=== PATIENT | female | born 1975 | race Caucasian/White ===

== ENCOUNTER 2020-04-13 15:41 | Emergency (ER) | payer MEDICARE, OTHER, SELFPAY ==
[2020-04-13 15:46] VITALS: BP 172/91; PULSE 76; RESP 20; TEMP 37; O2SAT 96
[2020-04-13 16:26] VITALS: PULSE 68
--- NOTE | 2020-04-13 17:06 | ECG_ITS ---
Measurements Intervals Max Rate: 61 P: 68 CA: 155 QRS: 60 QRSD: 93 T: 63 QT: 436 QTc: 442 Interpretive Statements SINUS RHYTHM WITH MARKED SINUS ARRHYTHMIA NORMAL ECG Electronically Signed On 04-14-2020 6:58:02 CDT by Armando Schofield D.O.
[2020-04-13 17:31] LABS: Basophils Absolute Auto 0.1 K/mm3 (0.0-0.1); Basophils Percent Auto 0.8 % (0.2-1.2); Eosinophils Absolute Auto 0.3 K/mm3 (0-0.3); Eosinophils Percent Auto 4.3 % (0-4.4); Hematocrit 33.7 % (37.0-47.0); Hemoglobin 10.7 g/dL (12.0-15.0); Immature Granulocyte Absolute 0.02 K/mm3 (0.00-0.031); Immature Granulocyte Percent A 0.3 % (0-0.5); Lymphocytes Absolute Auto 2.64 K/mm3 (0.9-3.2); Mean Corpuscular HGB Conc 31.8 g/dl (32-36); Mean Corpuscular Hemoglobin 21.1 pg (26-34); Mean Corpuscular Volume 66.6 fl (80-100); Mean Platelet Volume 11.5 fl (7.4-10.4); Monocytes Absolute Auto 0.4 K/mm3 (0.1-0.6); Monocytes Percent Auto 5.5 % (2.6-8.5); Neutrophils Absolute Auto 4.3 K/mm3 (1.3-6.7); Neutrophils Percent Auto 55.1 % (45.5-73.1); Platelet Count Result 180 k/mm3 (150-375); Red Blood Count 5.06 M/mm3 (4.2-5.4); Red Cell Distribution Width 15.2 % (11.5-14.5); White Blood Count 7.8 K/mm3 (4.5-10.0)
[2020-04-13 17:43] LABS: Alanine Aminotransferase 19 U/L (4-35); Albumin Level 4.1 g/dL (3.5-5.1); Alkaline Phosphatase 67 U/L (38-126); Aspartate Amino Transferase 24 U/L (14-36); Bilirubin,Total 0.6 mg/dL (0.2-1.3); Blood Urea Nitrogen 7 mg/dL (7-17); Calcium 8.9 mg/dL (8.4-10.2); Carbon Dioxide 29 mmol/L (22-30); Chloride 106 mmol/L (98-107); Estimated CRCL calculation 107 ml/min; Estimated Glomerular Filt Rate > 60; Glucose 96 mg/dL (65-105); Potassium 3.3 mmol/L (3.4-5.0); Sodium 137 mmol/L (137-145)
[2020-04-13 17:57] VITALS: BP 150/86; PULSE 55
[2020-04-13 17:58] VITALS: BP 160/91; PULSE 53
--- NOTE | 2020-04-13 17:58 | ED.GENADULT ---
HPI - General Adult General Chief complaint: Unspecified Stated complaint: I ALMOST PASSED OUT Time Seen by Provider: 04/13/20 17:06 Source: patient Mode of arrival: ambulatory Limitations: no limitations History of Present Illness HPI narrative: This patient is a 44 year old female who presents for evaluation of tiredness. She states she has been at work for 8 hours in a hot environment. She states that as she was working she started feel tired. She reports everytime she would sit down she want to fall asleep. She feels better. She denies chest pain, headache, sob, abdominal pain, nausea, vomiting or fever. Related Data Home Medications Medication Instructions Recorded Confirmed No Home Medications 04/13/20 04/13/20 Allergies Allergy/AdvReac Type Severity Reaction Status Date / Time No Known Allergies Allergy Verified 04/13/20 18:47 Review of Systems Review of Systems: All systems reviewed & are unremarkable except as noted in HPI and below Constitutional: Constitutional: Denies chills and Denies fever(s) ENT: Denies dizziness, Denies epistaxis and Denies sore throat Cardiovascular: Cardiovascular: Denies chest pain, Denies rapid heart rate and Denies radiating jaw, neck or arm pain Respiratory: Respiratory: Denies chest congestion, Denies cough and Denies dyspnea Gastrointestinal: Gastrointestinal: Denies abdominal pain, Denies diarrhea, Denies nausea and Denies vomiting Musculoskeletal: Musculoskeletal: Denies back pain Neurologic: Denies headache(s) and Denies focal weakness PMFSH Past Medical History Medical History (Updated 04/13/20 @ 18:46 by Zully Saldana MD) Hyperlipidemia Hypertension Surgical History Surgical History (Updated 04/13/20 @ 17:59 by Zully Saldana MD) History of laparotomy Social History Social History (Updated 04/13/20 @ 17:59 by Zully Saldana MD) Smoking packs per day: 1 Smoking cigarettes per day: 20.0 Smoking status: Current every day smoker Exam Narrative: Exam Narrative: GENERAL: Well-appearing, well-nourished, and in no acute distress. HEAD: Normocephalic, atraumatic EYES: PERRLA and EOMI, conjunctiva clear without discharge EARS: TM's clear bilaterally without erythema or dullness NOSE: Nares clear, no rhinorrhea or epistaxis THROAT:Mucous membranes moist, Oropharynx normal without erythema, exudate, peritonsillar swelling or fluctuance NECK: Supple, without lymphadenopathy or mass RESPIRATORY: No respiratory distress, Airway patent, Respirations non-labored, Clear to auscultation without rales, rhonchi or wheeze HEART: Regular rate and rhythm. No murmur heard. Normal peripheral pulses. ABDOMEN: Soft, nontender, nondistended, normal active bowel sounds. No masses. No rebound or guarding, No organomegaly. EXTREMITIES: No edema, normal strength with full range of motion. SKIN: Warm, dry, normal color without rash NEURO: Alert and oriented x3. CN 2-12 grossly intact. No focal deficits. PSYCH: Normal mood and affect. Course Vital Signs Vital signs: Vital Signs Temperature 98.6 F 04/13/20 15:46 Pulse Rate 76 04/13/20 15:46 Respiratory Rate 20 04/13/20 15:46 Blood Pressure 172/91 H 04/13/20 15:46 Pulse Oximetry 96 04/13/20 15:46 Temperature 98.6 F 04/13/20 15:46 Pulse Rate 62 04/13/20 18:53 Respiratory Rate 16 04/13/20 18:53 Blood Pressure 144/89 H 04/13/20 18:53 Pulse Oximetry 98 04/13/20 18:53 Medical Decision Making Vital Signs Vital Signs: Vital Signs Temperature 98.6 F 04/13/20 15:46 Pulse Rate 76 04/13/20 15:46 Respiratory Rate 20 04/13/20 15:46 Blood Pressure 172/91 H 04/13/20 15:46 Pulse Oximetry 96 04/13/20 15:46 Temperature 98.6 F 04/13/20 15:46 Pulse Rate 62 04/13/20 18:53 Respiratory Rate 16 04/13/20 18:53 Blood Pressure 144/89 H 04/13/20 18:53 Pulse Oximetry 98 04/13/20 18:53 Lab Data Lab results reviewed: Yes I reviewed
[2020-04-13 18:00] VITALS: BP 162/95; PULSE 60
[2020-04-13] MEDS: POTASSIUM CHLORIDE 20 MEQ TABLET 40 MEQ PO (18:47)
[2020-04-13 18:53] VITALS: BP 144/89; PULSE 62; RESP 16; O2SAT 98
== END 2020-04-13 18:53 | disposition home or self-care (01) ==
PROVIDERS: Emergency Provider General Practice
DX: R53.83 Other fatigue (principal); E87.6 Hypokalemia; E78.5 Hyperlipidemia, unspecified; I10 Essential (primary) hypertension; F17.210 Nicotine dependence, cigarettes, uncomplicated
CPT/HCPCS: 36415; 80053; 81025; 85025; 93005; 99283; A9270

== ENCOUNTER 2020-12-22 15:37 | Emergency (ER) | payer MEDICARE, SELFPAY ==
--- NOTE | ~2020-12-22 | CT_ITS ---
EXAMINATION: CT cervical spine wo [facility] EXAM DATE: 12/22/2020 19:13 INDICATION: Neck pain, intermittent tingling in arms. TECHNIQUE: Spiral CT of the cervical spine was performed without contrast. Axial images were reviewe d. Coronal and sagittal reformatted images were also reviewed. The dose-length product (DLP) for thi s examination was 352.55 mGy-cm. The exposure was tailored according to patient size (auto mA exposu re control), and iterative reconstruction (ASIR) was used as additional dose reduction technique. Th ere is no prior study for comparison. FINDINGS: The vertebral bodies are aligned in the AP dimension. There are no acute fractures identif ied. Mild mid cervical disc disease. Mild to moderate bilateral uncovertebral joint arthropathy at C3 -4 causing mild to moderate bilateral neural foraminal stenosis. Otherwise mild cervical arthropathy. The odontoid process is intact. The lateral masses of C1 line up with C2. Prevertebral soft tissue and pre-dens space are within normal limits. IMPRESSION: C3-4 mild to moderate spondylosis. Less at other levels. Reviewed, dictated and finalized at location A. 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
[2020-12-22 16:20] VITALS: BP 108/68; PULSE 89; RESP 18; TEMP 36.6; O2SAT 97
[2020-12-22 16:39] LABS: Basophils Absolute Auto 0.1 K/mm3 (0.0-0.1); Basophils Percent Auto 0.7 % (0.2-1.2); Eosinophils Absolute Auto 0.4 K/mm3 (0-0.3); Eosinophils Percent Auto 4.5 % (0-4.4); Hematocrit 37.4 % (37.0-47.0); Hemoglobin 11.6 g/dL (12.0-15.0); Immature Granulocyte Absolute 0.02 K/mm3 (0.00-0.031); Immature Granulocyte Percent A 0.2 % (0-0.5); Immature Platelet Fraction Pct 12.9 % (0.9-11.2); Lymphocytes Absolute Auto 2.64 K/mm3 (0.9-3.2); Lymphocytes Percent Auto 30.4 % (18.3-44.2); Mean Corpuscular Hemoglobin 20.9 pg (26-34); Mean Corpuscular Volume 67.4 fl (80-100); Mean Platelet Volume 12.2 fl (7.4-10.4); Monocytes Absolute Auto 0.5 K/mm3 (0.1-0.6); Monocytes Percent Auto 5.4 % (2.6-8.5); Neutrophils Absolute Auto 5.1 K/mm3 (1.3-6.7); Neutrophils Percent Auto 58.8 % (45.5-73.1); Platelet Count Result 203 k/mm3 (150-375); Red Blood Count 5.55 M/mm3 (4.2-5.4); Red Cell Distribution Width 15.8 % (11.5-14.5); White Blood Count 8.7 K/mm3 (4.5-10.0)
[2020-12-22 16:49] LABS: Alanine Aminotransferase 39 U/L (4-35); Albumin Level 4.5 g/dL (3.5-5.1); Alkaline Phosphatase 69 U/L (38-126); Anion Gap 5 mmol/L (8-16); Aspartate Amino Transferase 36 U/L (14-36); Bilirubin,Total 0.8 mg/dL (0.2-1.3); Blood Urea Nitrogen 24 mg/dL (7-17); Calcium 9.7 mg/dL (8.4-10.2); Carbon Dioxide 29 mmol/L (22-30); Chloride 105 mmol/L (98-107); Estimated CRCL calculation 104 ml/min; Estimated Glomerular Filt Rate > 60; Glucose 102 mg/dL (65-105); Potassium 3.4 mmol/L (3.4-5.0); Sodium 139 mmol/L (137-145)
--- NOTE | 2020-12-22 18:43 | ED.EXTPRO ---
HPI - Extremity Problem General Chief complaint: Extremity Problem,Nontraumatic Stated complaint: numbness bilat hands, leg edema Time Seen by Provider: 12/22/20 18:16 Source: patient Mode of arrival: ambulatory Limitations: no limitations History of Present Illness HPI Narrative: This is a 45-year-old female that presents the emergency department for intermittent bilateral hand numbness. Associated with neck pain. No known recent injury or trauma. Reports this has been ongoing for months. Also reports she intermittently has swelling in her legs, but does not currently have any swelling in her legs. Denies fever, chest pain, shortness of breath, or weakness. Related Data Home Medications Medication Instructions Recorded Confirmed albuterol sulfate INHALATION 12/22/20 lisinopril-hydrochlorothiazide tablet 12/22/20 meloxicam 12/22/20 mirabegron [Myrbetriq] mg PO 12/22/20 Allergies Allergy/AdvReac Type Severity Reaction Status Date / Time No Known Allergies Allergy Verified 12/22/20 16:26 Review of Systems Review of Systems: Narrative: CONSTITUTIONAL: Denies fever CARDIOVASCULAR: Denies chest pain RESPIRATORY: Denies dyspnea. SKIN: Denies rash MUSCULOSKELETAL: Reports joint pain, and myalgia. NEUROLOGIC: Denies numbness, or weakness. All systems reviewed & are unremarkable except as noted in HPI and below PMFSH Past Medical History Medical History (Updated 12/22/20 @ 21:20 by Ashley Perez PA-C) Hyperlipidemia Hypertension Surgical History Surgical History (Updated 04/13/20 @ 17:59 by Zully Saldana MD) History of laparotomy Social History Social History (Updated 04/13/20 @ 17:59 by Zully Saldana MD) Smoking packs per day: 1 Smoking cigarettes per day: 20.0 Smoking status: Current every day smoker Gender identity (if verbalized by the patient): Female Exam Narrative: Exam Narrative: GENERAL: Well-appearing, well-nourished, and in no acute distress. HEAD: Normocephalic, atraumatic. EYES: PERRLA and EOMI. ENT: Nares clear, no rhinorrhea or epistaxis. Mucous membranes moist. Oropharynx without tonsillar hypertrophy exudate or other lesions. Bilateral TMs pearly butler non-bulging NECK: Supple. No adenopathy or masses. CHEST: Clear to auscultation. No respiratory distress. No wheezes rales or rhonchi HEART: Regular rate and rhythm. No murmur heard. Normal peripheral pulses. EXTREMITIES: Normal range of motion. No edema. Strength equal in bilateral upper extremities (5/5). Normal radial pulses. Normal sensation SKIN: Warm, dry, no rash. NEURO: No focal deficits. Alert and oriented x3. Cranial nerves II through XII grossly intact PSYCH: Normal mood and affect Course Vital Signs Vital signs: Vital Signs Temperature 97.8 F 12/22/20 16:20 Pulse Rate 89 12/22/20 16:20 Respiratory Rate 18 12/22/20 16:20 Blood Pressure 108/68 12/22/20 16:20 Pulse Oximetry 97 12/22/20 16:20 Temperature 97.8 F 12/22/20 16:20 Pulse Rate 70 12/22/20 18:52 Respiratory Rate 19 12/22/20 18:52 Blood Pressure 124/90 12/22/20 18:52 Pulse Oximetry 96 12/22/20 18:52 MDM - Extremity (Nontraumatic) MDM Narrative Medical decision making narrative: Patient presents to the emergency department for intermittent tingling in her hands. Associated with neck pain. No recent injury or trauma. She is neurologically intact. CBC and metabolic panel without concerning findings. Patient was also reporting intermittent swelling in her legs, no edema noted on exam today. Her BNP is normal. CT scan of the cervical spine shows C3/C4 mild to moderate spondylosis. Patient was updated on case findings. She was instructed to rest, and take over the counter pain medication as needed. She will be given muscle relaxer as needed for pain. She is to follow-up with her primary care doctor. She was given warnings to return to the ER Lab Data Attestation: I reviewed the patient's lab results. Result diagr
[2020-12-22 18:52] VITALS: BP 124/90; PULSE 70; RESP 19; O2SAT 96
[2020-12-22 19:00] VITALS: BP 131/66; PULSE 87; RESP 14; O2SAT 99
--- NOTE | 2020-12-22 19:39 | PC.NURSE ---
called lab about BNP. They are in the process of adding on the test.
--- NOTE | 2020-12-22 19:39 | PC.NURSE ---
Assumed care of Pt. report from ROMI Arenas
[2020-12-22 20:06] LABS: NT Pro B Type Natriuretic Pept 24 PG/ML (5-100)
[2020-12-22 21:00] VITALS: BP 120/85; PULSE 82; RESP 20; O2SAT 99
== END 2020-12-22 21:00 | disposition home or self-care (01) ==
PROVIDERS: Physician Assistant; Emergency Provider Emergency Medicine; PCP Family Medicine
DX: M47.812 Spondylosis without myelopathy or radiculopathy, cervical region (principal); E78.5 Hyperlipidemia, unspecified; I10 Essential (primary) hypertension; F17.210 Nicotine dependence, cigarettes, uncomplicated
CPT/HCPCS: 36415; 72125; 80053; 83880; 85025; 85055; 99284

== ENCOUNTER 2021-05-03 10:36 | Emergency (ER) | payer OTHER, MEDICARE, SELFPAY ==
--- NOTE | ~2021-05-03 | CT_ITS ---
EXAMINATION: CT brain wo con INDICATION: Dizziness COMPARISON: None TECHNIQUE: Standard unenhanced head CT. The dose-length product (DLP) was 605.33 mGy-cm. The mA was a djusted according to patient size. Iterative reconstruction technique was employed. FINDINGS: There is no intracranial hemorrhage, acute infarction, or abnormal mass lesion. The ventric les are normal. There is no abnormal mass effect or midline shift. The butler-white matter differentiat ion is normal. The basal cisterns are patent. The orbits are normal. The paranasal sinuses, mastoids and calvarium are normal. IMPRESSION: 1. No acute intracranial abnormality. Reviewed, dictated and finalized at location B.
[2021-05-03 11:17] VITALS: BP 110/76; PULSE 70; RESP 16; TEMP 36.4; O2SAT 99
--- NOTE | 2021-05-03 12:39 | ECG_ITS ---
Measurements Intervals [place] Rate: 49 P: 59 NV: 157 QRS: 64 QRSD: 89 T: 72 QT: 466 QTc: 421 Interpretive Statements SINUS BRADYCARDIA BORDERLINE ST-T WAVE ABNORMALITY- ANT/HIGH LAT LEADS ABNORMAL ECG Electronically Signed On 05-03-2021 13:22:02 CDT by Armando Schofield D.O.
[2021-05-03 13:00] VITALS: BP 141/82; PULSE 54; RESP 16; O2SAT 100
--- NOTE | 2021-05-03 13:07 | ED.DIZZY ---
HPI - Dizziness General Chief Complaint: Dizziness Stated Complaint: Lightheaded Time Seen by Provider: 05/03/21 12:34 Source: patient Mode of arrival: ambulatory Limitations: no limitations History of Present Illness HPI Narrative: Patient is a 45-year-old female complaining of dizziness on and off for the past year after being exposed to carbon monoxide. Patient currently denies being dizzy. Patient denies any headache, speech or visual disturbance, focal weakness or numbness, chest pain, shortness of breath, abdominal pain, nausea, vomiting, fever or chills Related Data Home Medications Medication Instructions Recorded Confirmed albuterol sulfate INHALATION 12/22/20 lisinopril-hydrochlorothiazide tablet 12/22/20 meloxicam 12/22/20 mirabegron [Myrbetriq] mg PO 12/22/20 Allergies Allergy/AdvReac Type Severity Reaction Status Date / Time No Known Allergies Allergy Verified 05/03/21 11:27 Review of Systems Review of Systems: All systems reviewed & are unremarkable except as noted in HPI and below Constitutional: Constitutional: Denies body ache(s), Denies chills, Denies excessive sweating, Denies fatigue, Denies fever(s), Denies headache(s), Denies lethargy, Denies malaise, Denies weakness and Denies weight loss Eyes: Eyes: Denies blurry vision, Denies change in vision and Denies loss of vision ENT: Denies dizziness, Denies ear discharge, Denies headache(s), Denies lip swelling, Denies epistaxis, Denies nasal congestion, Denies neck pain, Denies throat swelling and Denies tongue swelling Cardiovascular: Cardiovascular: Denies chest pain, Denies chest pain at rest, Denies chest pain with activity, Denies diaphoresis, Denies rapid heart rate, Denies edema, Denies irregular heart rhythm, Denies lightheadedness, Denies palpitations, Denies dyspnea and Denies dyspnea on exertion Respiratory: Respiratory: Denies chest congestion, Denies cough, Denies hemoptysis, Denies dyspnea and Denies dyspnea on exertion Gastrointestinal: Gastrointestinal: Denies abdominal pain, Denies melena, Denies hematochezia, Denies diarrhea, Denies nausea, Denies vomiting and Denies hematemesis Musculoskeletal: Musculoskeletal: Denies abnormal gait, Denies deformity, Denies joint swelling, Denies limited range of motion, Denies neck pain and Denies numbness Neurologic: Denies Abnormal speech present, Denies abnormal gait, Denies confusion, Denies headache(s), Denies focal weakness, Denies loss of vision, Denies numbness, Denies Other visual disturbances, Denies Sensory deficit (Neuro) and Denies weakness Psychiatric: Psychiatric: Denies confusion, Denies depression, Denies auditory hallucinations, Denies homicidal ideation and Denies suicidal ideation Endocrine: Endocrine: Denies cold intolerance, Denies excessive sweating, Denies fatigue, Denies heat intolerance and Denies palpitations Hematologic/Lymphatic: Hematologic/Lymphatic: Denies easy bleeding and Denies easy bruising Allergic/Immunologic: Allergic/Immunologic: Denies lip swelling, Denies throat swelling and Denies tongue swelling PMFSH Past Medical History Medical History Hyperlipidemia Hypertension Surgical History Surgical History History of laparotomy Social History Social History Smoking packs per day: 1 Smoking cigarettes per day: 20.0 Smoking status: Current every day smoker Gender identity (if verbalized by the patient): Female Exam Const: General: cooperative, healthy appearing, comfortable, no acute distress, well developed, alert and awake; No confusion Orientation/consciousness: oriented to person, oriented to place, oriented to time, patient oriented x3 and No confusion Limitations: no limitations HENMT: Head: normal to inspection, normocephalic and atraumatic Ears: hearing grossly nor
[2021-05-03 13:12] LABS: Basophils Absolute Auto 0.1 K/mm3 (0.0-0.1); Basophils Percent Auto 1.1 % (0.2-1.2); Eosinophils Absolute Auto 0.5 K/mm3 (0-0.3); Eosinophils Percent Auto 7.4 % (0-4.4); Hematocrit 34.3 % (37.0-47.0); Hemoglobin 10.5 g/dL (12.0-15.0); Immature Granulocyte Absolute 0.02 K/mm3 (0.00-0.031); Immature Granulocyte Percent A 0.3 % (0-0.5); Immature Platelet Fraction Pct 12.5 % (0.9-11.2); Lymphocytes Absolute Auto 1.95 K/mm3 (0.9-3.2); Lymphocytes Percent Auto 30.9 % (18.3-44.2); Mean Corpuscular HGB Conc 30.6 g/dl (32-36); Mean Corpuscular Hemoglobin 20.9 pg (26-34); Mean Corpuscular Volume 68.2 fl (80-100); Mean Platelet Volume 12.1 fl (7.4-10.4); Monocytes Absolute Auto 0.6 K/mm3 (0.1-0.6); Neutrophils Absolute Auto 3.2 K/mm3 (1.3-6.7); Neutrophils Percent Auto 51.3 % (45.5-73.1); Platelet Count Result 191 k/mm3 (150-375); Red Blood Count 5.03 M/mm3 (4.2-5.4); Red Cell Distribution Width 16.3 % (11.5-14.5); White Blood Count 6.3 K/mm3 (4.5-10.0)
[2021-05-03 13:21] LABS: Anion Gap 7 mmol/L (8-16); Blood Urea Nitrogen 13 mg/dL (7-17); Calcium 9.1 mg/dL (8.4-10.2); Carbon Dioxide 30 mmol/L (22-30); Chloride 104 mmol/L (98-107); Estimated CRCL calculation 104 ml/min; Estimated Glomerular Filt Rate > 60; Glucose 92 mg/dL (65-105); Potassium 3.3 mmol/L (3.4-5.0); Sodium 141 mmol/L (137-145)
[2021-05-03] MEDS: POTASSIUM CHLORIDE 20 MEQ PACKET (FOR LIQUID) PO (13:56)
[2021-05-03 14:17] VITALS: BP 132/79; PULSE 55; RESP 16; O2SAT 98
== END 2021-05-03 14:19 | disposition home or self-care (01) ==
PROVIDERS: Emergency Provider Emergency Medicine; PCP Family Medicine
DX: R42 Dizziness and giddiness (principal); R00.1 Bradycardia, unspecified; I10 Essential (primary) hypertension; E78.5 Hyperlipidemia, unspecified
CPT/HCPCS: 36415; 70450; 80048; 85025; 85055; 93005; 99284; A9270

== ENCOUNTER 2021-06-27 12:29 | Outpatient (CLI) | payer OTHER, MEDICARE, SELFPAY ==
--- NOTE | ~2021-06-27 | MM_ITS ---
EXAMINATION: MM screening evelyn BI w felix HISTORY: Screening mammogram TECHNIQUE: Craniocaudal and mediolateral oblique 3-D tomosynthesis images were obtained and synthetic 2-D images were generated. CAD analysis was submitted and interpreted. COMPARISON: 06/22/2017 BREAST PARENCHYMAL COMPOSITION: There are scattered areas of fibroglandular density. FINDINGS: There is no evidence of suspicious mass, calcification, or architectural distortion to sugg est malignancy in either breast. There has been no suspicious interval change. IMPRESSION: 1. No mammographic evidence of malignancy. 2. Recommend routine screening mammography in one year. BI-RADS Category 1: Negative Reviewed, dictated and finalized at location A.
== END 2021-06-27 12:30 | disposition home or self-care (01) ==
PROVIDERS: PCP Family Medicine; Visit Provider Family Medicine
DX: Z12.31 Encounter for screening mammogram for malignant neoplasm of breast (principal)
CPT/HCPCS: 77063; 77067

== ENCOUNTER 2021-11-28 15:22 | Emergency (ER) | payer OTHER, MEDICARE, SELFPAY ==
--- NOTE | ~2021-11-28 | XR_ITS ---
XR chest 2V DATE: 11/28/2021 19:21 INDICATION: Lower extremity edema. History of hypertension and bradycardia TECHNIQUE: PA and lateral views COMPARISON: None FINDINGS: Borderline heart size. No hilar or mediastinal enlargement. No pulmonary infiltrate or cons olidation, pleural effusion or pulmonary vascular congestion or pneumothorax. IMPRESSION: Borderline heart size; no active pulmonary disease Reviewed, dictated and finalized at location A. RVISOR SCREEN MAKING
[2021-11-28 15:25] VITALS: BP 171/93; PULSE 79; RESP 16; TEMP 36.6; O2SAT 99
[2021-11-28 17:03] VITALS: BP 156/94; PULSE 72; RESP 18; O2SAT 96
--- NOTE | 2021-11-28 19:11 | ED.EXTPRO ---
HPI - Extremity Problem General Chief complaint: Extremity Problem,Nontraumatic Stated complaint: swelling to legs and feet Time Seen by Provider: 11/28/21 17:14 Source: patient Mode of arrival: ambulatory Limitations: no limitations History of Present Illness HPI Narrative: This is a 46 year old female that presents to the ER for lower extremity edema present over the last year. Reports worse with prolonged standing. She denies any current lower extremity edema. Denies fever, chest pain or shortness of breath. Related Data Home Medications Medication Instructions Recorded Confirmed albuterol sulfate 2 puff INHALATION Q4-5H PRN 12/22/20 11/28/21 lisinopril-hydrochlorothiazide 1 tablet PO DAILY 12/22/20 11/28/21 mirabegron [Myrbetriq] 50 mg PO DAILY 12/22/20 11/28/21 meloxicam 1 mg PO DAILY 11/28/21 11/28/21 Allergies Allergy/AdvReac Type Severity Reaction Status Date / Time No Known Allergies Allergy Verified 11/28/21 17:06 Review of Systems Review of Systems: CONSTITUTIONAL: Denies fever CARDIOVASCULAR: Denies chest pain RESPIRATORY: Denies dyspnea. SKIN: Denies rash All systems reviewed & are unremarkable except as noted in HPI and below PMFSH Past Medical History Medical History Hyperlipidemia Hypertension Surgical History Surgical History History of laparotomy Social History Social History Smoking packs per day: 1 Smoking cigarettes per day: 20.0 Smoking status: Current every day smoker Gender identity (if verbalized by the patient): Female Exam Narrative: GENERAL: Well-appearing, well-nourished, and in no acute distress. HEAD: Normocephalic, atraumatic. EYES: EOMI. CHEST: Clear to auscultation. No respiratory distress. No wheezes rales or rhonchi HEART: Regular rate and rhythm. No murmur heard. Normal peripheral pulses. EXTREMITIES: Normal range of motion. No edema. Normal DP pulses. Normal sensation SKIN: Warm, dry, no rash. NEURO: No focal deficits. Alert and oriented x3. PSYCH: Normal mood and affect Course Vital Signs Vital signs: Vital Signs Temperature 97.8 F 11/28/21 15:25 Pulse Rate 79 11/28/21 15:25 Respiratory Rate 16 11/28/21 15:25 Blood Pressure 171/93 H 11/28/21 15:25 Pulse Oximetry 99 11/28/21 15:25 Temperature 97.8 F 11/28/21 15:25 Pulse Rate 72 11/28/21 17:03 Respiratory Rate 18 11/28/21 17:03 Blood Pressure 156/94 H 11/28/21 17:03 Pulse Oximetry 96 11/28/21 17:03 MDM - Extremity (Nontraumatic) MDM Narrative Medical decision making narrative: Patient presents to the ER for lower extremity edema ongoing over the last year. Reports she experiences bilateral lower extremity edema, especially at the end of the day with prolonged standing. She does not have any concerning edema currently. She is neurovascularly intact. She denies any chest pain or shortness of breath. Oxygen saturation is normal on room air. She is not tachycardic. CBC is without leukocytosis. Shows microcytic anemia with hemoglobin of 11.7 which appears to be around her baseline. Metabolic panel with mild transaminitis. Urine is normal. BNP is not elevated. Chest x-ray without acute cardiopulmonary abnormality. Patient was updated on case findings. Is scheduled for bilateral lower extremity US in the morning. Was instructed to follow-up with her primary doctor. She was given warnings to return to the ER Blood pressure incidentally noted to be elevated. Asymptomatic. Known history of hypertension. Instructed to follow-up with her primary for this as well Lab Data Attestation: I reviewed the patient's lab results. Result diagrams: 11/28/21 19:16 11/28/21 19:16 Labs: Lab Results 11/28/21 11/28/21 11/28/21 Range/Units 19:16 19:16 19:17 WBC 8.3 (4.5-10.0) K/mm3 RBC
[2021-11-28 19:41] LABS: Add Urine Microscopic? NO; Appearance Urine Clear (Clear); Bilirubin Urine Negative (Negative); Blood Urine Negative (Negative); Color Urine Yellow (Yellow); Glucose Urine UA Negative (Negative); Ketones Urine Negative (Negative); Leukocyte Esterase Ur Negative LEU/UL (Negative); Nitrate Urine Negative (Negative); Protein Urine Negative (Negative); Specific Grav Ur 1.026 (1.001-1.035); Urobilinogen Urine Negative mg/dL (<2.0)
[2021-11-28 19:42] LABS: Basophils Absolute Auto 0.1 K/mm3 (0.0-0.1); Basophils Percent Auto 0.8 % (0.2-1.2); Eosinophils Absolute Auto 0.5 K/mm3 (0-0.3); Eosinophils Percent Auto 6.3 % (0-4.4); Hematocrit 37.5 % (37.0-47.0); Hemoglobin 11.7 g/dL (12.0-15.0); Immature Granulocyte Absolute 0.03 K/mm3 (0.00-0.031); Immature Granulocyte Percent A 0.4 % (0-0.5); Immature Platelet Fraction Pct 15.1 % (0.9-11.2); Lymphocytes Absolute Auto 3.04 K/mm3 (0.9-3.2); Lymphocytes Percent Auto 36.6 % (18.3-44.2); Mean Corpuscular HGB Conc 31.2 g/dl (32-36); Mean Corpuscular Hemoglobin 21.5 pg (26-34); Mean Corpuscular Volume 68.9 fl (80-100); Mean Platelet Volume 12.8 fl (7.4-10.4); Monocytes Absolute Auto 0.6 K/mm3 (0.1-0.6); Monocytes Percent Auto 6.9 % (2.6-8.5); Neutrophils Absolute Auto 4.1 K/mm3 (1.3-6.7); Platelet Count Result 201 k/mm3 (150-375); Red Blood Count 5.44 M/mm3 (4.2-5.4); Red Cell Distribution Width 15.1 % (11.5-14.5); White Blood Count 8.3 K/mm3 (4.5-10.0)
[2021-11-28 19:54] LABS: Alanine Aminotransferase 112 U/L (4-35); Albumin Level 4.5 g/dL (3.5-5.1); Alkaline Phosphatase 87 U/L (38-126); Anion Gap 8 mmol/L (8-16); Aspartate Amino Transferase 93 U/L (14-36); Bilirubin,Total 0.6 mg/dL (0.2-1.3); Blood Urea Nitrogen 17 mg/dL (7-17); Calcium 9.3 mg/dL (8.4-10.2); Carbon Dioxide 31 mmol/L (22-30); Chloride 102 mmol/L (98-107); Estimated CRCL calculation 106 ml/min; Estimated Glomerular Filt Rate > 60; Glucose 100 mg/dL (65-110); Sodium 141 mmol/L (137-145)
[2021-11-28 20:03] LABS: NT Pro B Type Natriuretic Pept 81 pg/mL (5-100)
== END 2021-11-28 20:55 | disposition home or self-care (01) ==
PROVIDERS: Emergency Provider Family Medicine; PCP Family Medicine
DX: R60.0 Localized edema (principal); R74.01 Elevation of levels of liver transaminase levels; E78.5 Hyperlipidemia, unspecified; I10 Essential (primary) hypertension; F17.210 Nicotine dependence, cigarettes, uncomplicated
CPT/HCPCS: 36415; 71046; 80053; 81003; 83880; 85025; 85055; 99283

== ENCOUNTER 2021-11-29 06:49 | Outpatient (CLI) | payer OTHER, MEDICARE, SELFPAY ==
--- NOTE | ~2021-11-29 | US_ITS ---
EXAMINATION: US venous doppler LE EXAM DATE: 11/29/2021 07:25 INDICATION: Bilateral leg swelling. TECHNIQUE: Multiple grayscale, color flow and Doppler images of the lower extremity deep venous syste ms bilaterally were obtained and reviewed. There is no prior study for comparison. FINDINGS: Right side: The right common femoral, femoral and profunda veins demonstrate normal color flow, respi ratory variation, augmentation and compressibility. Compressibility, color flow confirmed within the right popliteal, posterior tibial, peroneal, and greater saphenous veins. Left side: The left common femoral, femoral and profunda veins demonstrate normal color flow, respira tory variation, augmentation and compressibility. Compressibility, color flow confirmed within the l eft popliteal, posterior tibial, peroneal, and greater saphenous veins. IMPRESSION: 1. No lower extremity deep venous thrombosis bilaterally. Reviewed, dictated and finalized at location A. I CUTTER
== END 2021-11-29 06:50 | disposition home or self-care (01) ==
PROVIDERS: PCP Family Medicine; Visit Provider Physician Assistant
DX: M79.89 Other specified soft tissue disorders (principal)
CPT/HCPCS: 93970

== ENCOUNTER 2022-01-02 11:42 | Outpatient (CLI) | payer OTHER, MEDICARE, SELFPAY ==
--- NOTE | ~2022-01-02 | XR_ITS ---
XR foot RT min 3V 01/02/2022 12:17 Indication: Right foot pain Procedure: 4 views right foot Comparison: No prior studies for comparison. Findings: No fracture, subluxation or dislocation. Lisfranc joint intact. No significant soft tissue abnormality. No foreign bodies. Small degenerative calcaneal enthesophyte at the plantar surface. Impression: 1: No significant bone or joint abnormality. Reviewed, dictated and finalized at location A. CONTROL CONSULTANT Impression: 1: No significant bone or joint abnormality.
== END 2022-01-02 11:43 | disposition home or self-care (01) ==
LOC: ANHIMG 11:48
PROVIDERS: PCP Family Medicine; Visit Provider Family Medicine
DX: M79.671 Pain in right foot (principal)
CPT/HCPCS: 73630

== ENCOUNTER 2022-05-10 09:25 | Outpatient (CLI) | payer MEDICARE, SELFPAY ==
--- NOTE | 2022-05-10 | ECG_ITS ---
Measurements Intervals [place] Rate: 49 P: 70 [place]: 152 QRS: 64 QRSD: 89 T: 77 QT: 452 QTc: 409 Interpretive Statements SINUS BRADYCARDIA WITH SINUS ARRHYTHMIA BASELINE WANDER- I, II ABNORMAL ECG Electronically Signed On 05-10-2022 15:29:15 CDT by Armando Schofield D.O.
== END 2022-05-10 09:26 | disposition home or self-care (01) ==
PROVIDERS: PCP Family Medicine; Visit Provider Nurse Practitioner Adult Health
DX: R00.0 Tachycardia, unspecified (principal); R42 Dizziness and giddiness; R94.31 Abnormal electrocardiogram [ECG] [EKG]
CPT/HCPCS: 93005

== ENCOUNTER 2022-05-16 09:33 | Outpatient (CLI) | payer MEDICARE, SELFPAY ==
--- NOTE | 2022-05-16 | EST_ITS ---
Patient Info Name: Denisa Bergman Age: 46 years : 1975 Gender: Female Ht: 64 in Wt: 184 lbs BSA: 1.97 m2 HR: 53 bpm BP: 115 / 66 mmHg Heart Rhythm: Sinus Rhythm Exam Date: 05/16/2022 9:52 AM Exam Location: [facility] Stress Patient Status: Outpatient Admit Date: 05/16/2022 Staff Ordering Physician: Adele, Milan Joy APRN Attending Provider: Adele, Milan Joy APRN Exercise Technologist: Padma Ball CT Exercise Physician: Armando Schofield DO Exam Type: CA stress test treadmill Study Info Indications R42 - Dizziness and giddiness A treadmill exercise stress test was performed. Summary 1. 1. Negative Yao exercise stress test for ischemic ST changes by ECG criteria. 2. 2. Good functional capacity, achieving 10 METs of workload. 3. 3. Appropriate HR response to exercise. 4. 4. Appropriate HR recovery at 1 minute post exercise. 5. 5. No imaging with stress testing. 6. 6. Patient informed of the above results. Protocol: Yao Stress ECG Details Stage: REST Duration (min): 1 min : 1 sec Speed (mph): 0.0 Grade (%): 0 HR (bpm): 53 SBP (mmHg): 115 DBP (mmHg): 66 METS: --- Stage: REST Duration (min): 21 min : 23 sec Speed (mph): 0.0 Grade (%): 0 HR (bpm): 57 SBP (mmHg): 115 DBP (mmHg): 66 METS: --- Stage: STAGE 1 Duration (min): 1 min : 0 sec Speed (mph): 1.7 Grade (%): 10 HR (bpm): 106 SBP (mmHg): 115 DBP (mmHg): 66 METS: --- Stage: STAGE 1 Duration (min): 2 min : 0 sec Speed (mph): 1.7 Grade (%): 10 HR (bpm): 121 SBP (mmHg): 115 DBP (mmHg): 66 METS: --- Stage: STAGE 1 Duration (min): 3 min : 0 sec Speed (mph): 1.7 Grade (%): 10 HR (bpm): 124 SBP (mmHg): 161 DBP (mmHg): 83 METS: --- Stage: STAGE 2 Duration (min): 1 min : 0 sec Speed (mph): 2.5 Grade (%): 12 HR (bpm): 133 SBP (mmHg): 161 DBP (mmHg): 83 METS: --- Stage: STAGE 2 Duration (min): 2 min : 0 sec Speed (mph): 2.5 Grade (%): 12 HR (bpm): 139 SBP (mmHg): 159 DBP (mmHg): 83 METS: --- Stage: STAGE 2 Duration (min): 3 min : 0 sec Speed (mph): 2.5 Grade (%): 12 HR (bpm): 135 SBP (mmHg): 159 DBP (mmHg): 83 METS: --- Stage: STAGE 3 Duration (min): 1 min : 0 sec Speed (mph): 3.4 Grade (%): 14 HR (bpm): 142 SBP (mmHg): 160 DBP (mmHg): 86 METS: --- Stage: STAGE 3 Duration (min): 2 min : 0 sec Speed (mph): 3.4 Grade (%): 14 HR (bpm): 145 SBP (mmHg): 160 DBP (mmHg): 86 METS: --- Stage: STAGE 3 Duration (min): 2 min : 56 sec Speed (mph): 3.4 Grade (%): 14 HR (bpm): 149 SBP (mmHg): 171 DBP (mmHg): 75 METS: --- Stage: RECOVERY Duration (min): 0 min : 3 sec Speed (mph): 1.5 Grade (%): 0 HR (bpm): 149 SBP (mmHg): 171 DBP (mmHg): 75 METS: --- ---------
== END 2022-05-16 09:34 | disposition home or self-care (01) ==
PROVIDERS: PCP Family Medicine; Visit Provider Nurse Practitioner Adult Health
DX: R42 Dizziness and giddiness (principal)
CPT/HCPCS: 93017

== ENCOUNTER 2022-06-25 07:26 | Outpatient (CLI) | payer MEDICARE, SELFPAY ==
[2022-06-25 07:59] LABS: Hematocrit 38.4 % (37.0-47.0); Hemoglobin 11.9 g/dL (12.0-15.0)
[2022-06-25 08:16] LABS: Anion Gap 9 mmol/L (8-16); Blood Urea Nitrogen 14 mg/dL (7-17); Carbon Dioxide 29 mmol/L (22-30); Chloride 104 mmol/L (98-107); Estimated Glomerular Filt Rate > 60; Glucose 109 mg/dL (65-110); Sodium 142 mmol/L (137-145)
== END 2022-06-25 07:27 | disposition home or self-care (01) ==
LOC: ANHSURGERY 07:30
PROVIDERS: Anesthesiology; PCP Family Medicine; Visit Provider Obstetrics & Gynecology
DX: I10 Essential (primary) hypertension (principal); E61.1 Iron deficiency
CPT/HCPCS: 36415; 80048; 85014; 85018

== ENCOUNTER 2022-06-27 00:20 | Day surgery (SDC) | payer MEDICARE, SELFPAY ==
--- NOTE | 2022-06-24 13:45 | PC.NURSE ---
Report to the Outpatient Waiting Room, entrance under the green pavilion located off [facility], at time _0830__ on date 06/27/22_. OR Time: _1030_. - You and your visitor will be asked to self-screen and do not enter if you have any COVID symptoms. - Only one visitor and NO children visitors are allowed at this time. - The patient visitor is requested to leave or wait in car when not with patient due to restrictions. - A mask is required within the hospital. Patients may have clear liquids (water, carbonated beverages, clear teas, apple juice) until 3 hours prior to surgery with a maximum of 20 ounces. - No food from midnight until time of surgery - Infants may have breast milk until 4 hours before surgery, formula 6 hours prior to surgery. - Children will be allowed to drink immediately following surgery. If applicable, please bring a bottle or sippy cup to assist with drinking. Juice, water, soda, and popsicles are readily available. For infants on formula, please bring formula the day of surgery. Pacifiers are allowed. Take the following medications with a SIP of water the morning of surgery: ____NONE Medications to discontinue per physician VITAMIN/SUPPLIMENT Date to take last dose 06/24/22 Please no make-up, nail albanian, hairspray, perfume, deodorant, or body powder the day of surgery. No jewelry (including any body piercings) or valuables the day of surgery, leave them at home. Please take a shower or bath the night before, or the morning of, surgery with an antibacterial soap. Wear comfortable, loose fitting clothing. Children are encouraged to wear pajamas. - Jewelry must be removed prior to entering the operating room. Rings and piercings that are not removed may be cut off. - The hospital will not accept responsibility for valuables. - Please leave all valuables, including medications, at home the day of surgery. If you are going home after surgery, a licensed driver recruiter must drive you home. - NO public transportation without another adult. - We recommend that an adult stay with you for 24 hours following discharge. - We also recommend that you do not drive, make important decision, drink alcoholic beverages, or take any drugs that were not prescribed by your health care provider for at least 24 hours after your discharge time. For Pediatric surgeries, we recommend two adults accompany the child home (only one inside the building at this time). Follow any additional instructions given to you from your surgeon. If you or anyone in your household have experienced Covid symptoms in the past week, please notify your surgeon or the nurse liaison at the phone number below for possible testing. Telephone instructions given to _PATIENT_and asked if any additional questions and then verbalized understanding. Patient advised to call surgeon office or pre surgery nurse liaison [phone] if any additional questions.
--- NOTE | 2022-06-26 13:24 | WPDANESEPPF ---
Anes - Initial Pre Proc Eval Procedure: Operation Date: 06/27/22 10:45 Proposed Procedures p Loop Electrical Excision Procedure - Getachew Levy MD Date/Time: 06/26/22 13:24 Surgeon: Getachew Levy MD Pre Op Diagnosis: cervical dysplasia Patient Data Age: 46 Gender: F Height: Weight: Allergies Allergy/AdvReac Type Severity Reaction Status Date / Time No Known Allergies Allergy Verified 06/27/22 08:35 Home Medications Medication Instructions Recorded Confirmed Type albuterol sulfate 90 mcg/actuation 2 puff inhalation Q4-5H PRN 12/22/20 06/27/22 History aerosol inhaler Shortness Of Breath Or Wheezing meloxicam 7.5 mg tablet 7.5 mg PO DAILY 11/28/21 06/27/22 History atorvastatin 20 mg tablet 20 mg PO DAILY 06/24/22 06/27/22 History cranberry extract 250 mg tablet 500 mg PO DAILY 06/24/22 06/27/22 History ferrous sulfate 325 mg (65 mg 325 mg PO DAILY 06/24/22 06/27/22 History iron) tablet (Iron (ferrous sulfate)) multivitamin with minerals-folic 1 tablet PO DAILY 06/24/22 06/27/22 History acid 0.4 mg tablet oxybutynin chloride 5 mg 5 mg PO DAILY 06/24/22 06/27/22 History tablet,extended release 24 hr ibuprofen 800 mg tablet 800 mg PO TID PRN pain #20 tabs 06/27/22 Rx Patient hx anesthesia problems: none Family hx anesthesia problems: none Results Review: All pre-operative results and documents have been reviewed as part of the pre-operative evaluation. [facility] Past Medical History Medical History Anemia Arthritis Asthma Hyperlipidemia Hypertension Low grade squamous intraepithelial lesion (LGSIL) Surgical History Surgical History History of laparotomy ectopic Family History Family History Mother Diabetes mellitus Cerebrovascular accident Father Throat cancer Grandparent Bone cancer paternal grandfather Other CHF (congestive heart failure) Social History Social History Smoking packs per day: 1 Smoking cigarettes per day: 20.0 Years smoked: 35 Smoking pack-years: 35.00 Smoking status: Current every day smoker Tobacco type: cigarettes Alcohol intake: never Substance use: never Substance use type: does not use Living arrangements: alone Additional occupation/education comments: [employer] Gender identity (if verbalized by the patient): Female Sexual Orientation (if Verbalized by the Patient): Straight or Heterosexual Anes - Eval Final PreProcedure Day of Procedure 06/26/22 13:24 Patient weight: normal Heart: regular rate and rhythm Lungs: clear to auscultation and normal air movement Airway: Mallampati scale class II Neurological: alert and oriented Last oral intake: >/= 8 hours ASA classification: II Emergent: no Anesthetic plan: proceed Anesthesia type and monitoring: general GIVS Results Review: All pre-operative results and documents have been reviewed as part of the pre-operative evaluation. Informed Consent: The patient's anesthetic plan and its attendant risks and benefits were discussed with the patient/family/POA. Questions were solicited and answers provided to the satisfaction of the patient/family/POA.
[2022-06-27 08:31] VITALS: BP 134/76; PULSE 58; RESP 16; TEMP 36.3; O2SAT 100
[2022-06-27 08:39] VITALS: BMI 30.6
--- NOTE | 2022-06-27 08:51 | PM.IMHP ---
H&P: HPI History of Present Illness Date/Time: 06/27/22 08:51 46-year-old female presents for treatment of high-grade squamous intraepithelial lesion of the cervix. This was found on colposcopy recently and biopsy did show moderate to severe dysplasia. Does have a history of LEEP approximate 10 years ago and only 1 Pap smear in the interim which she states was normal though I have no records. Chief Complaint: Cervical dysplasia Review of Systems Review of Systems: All systems reviewed & are unremarkable except as noted in HPI and below PMFSH Past Medical History Medical History Anemia Arthritis Asthma Hyperlipidemia Hypertension Low grade squamous intraepithelial lesion (LGSIL) Surgical History Surgical History History of laparotomy ectopic Family History Family History Mother Diabetes mellitus Cerebrovascular accident Father Throat cancer Grandparent Bone cancer paternal grandfather Other CHF (congestive heart failure) Social History Social History Smoking packs per day: 1 Smoking cigarettes per day: 20.0 Years smoked: 35 Smoking pack-years: 35.00 Smoking status: Current every day smoker Tobacco type: cigarettes Alcohol intake: never Substance use: never Substance use type: does not use Living arrangements: alone Additional occupation/education comments: [employer] Gender identity (if verbalized by the patient): Female Sexual Orientation (if Verbalized by the Patient): Straight or Heterosexual Meds Home Medications and Allergies Home Medications Medication Instructions Recorded Confirmed Type albuterol sulfate 90 mcg/actuation 2 puff inhalation Q4-5H PRN 12/22/20 06/27/22 History aerosol inhaler Shortness Of Breath Or Wheezing meloxicam 7.5 mg tablet 7.5 mg PO DAILY 11/28/21 06/27/22 History atorvastatin 20 mg tablet 20 mg PO DAILY 06/24/22 06/27/22 History cranberry extract 250 mg tablet 500 mg PO DAILY 06/24/22 06/27/22 History ferrous sulfate 325 mg (65 mg 325 mg PO DAILY 06/24/22 06/27/22 History iron) tablet (Iron (ferrous sulfate)) multivitamin with minerals-folic 1 tablet PO DAILY 06/24/22 06/27/22 History acid 0.4 mg tablet oxybutynin chloride 5 mg 5 mg PO DAILY 06/24/22 06/27/22 History tablet,extended release 24 hr Allergies Allergy/AdvReac Type Severity Reaction Status Date / Time No Known Allergies Allergy Verified 06/27/22 08:35 Vital Signs Vital Signs - 24 hr 06/27/22 08:31 Temperature 97.3 F L Pulse Rate 58 L Respiratory Rate 16 Blood Pressure 134/76 Pulse Oximetry 100 Oxygen Delivery Room Air Exam Const: General: cooperative, healthy appearing and comfortable Resp: Effort & Inspection: normal respiratory effort Auscultation: clear to auscultation bilaterally Cardio: Rate: regular rate Rhythm: regular rhythm GI: Inspection: normal to inspection Auscultation: normal bowel sounds : External Female Exam: normal external appearance Speculum Exam - Vagina: normal appearance of the vagina Speculum Exam - Cervix: normal appearance of the cervix Bimanual exam- vagina & uterus: normal bimanual exam Assessment and Plan Assessment and plan (1) High grade squamous intraepithelial cervical dysplasia: Code(s): R87.613 - High grade squamous intraepithelial lesion on cytologic smear of cervix (HGSIL) Status: Acute Assessment and Plan: Proceed with LEEP conization. Likely will need hysterectomy due to recurrent high-grade dysplasia.
--- NOTE | 2022-06-27 08:54 | WPDHPUPDATE1 ---
History and Physical Update Update Date/Time: 06/27/22 08:54 History and Physical has been reviewed, including an updated exam of the patient. There are NO changes in the patient's condition. Risks, benefits, and alternatives have been discussed and questions answered. Patient agrees to proceed with procedure.
[2022-06-27] MEDS: LACTATED RINGERS 1,000 ML 30 ML IV CONT (08:56)
[2022-06-27] MEDS: ACETAMINOPHEN 500 MG TABLET 1000 MG PO (08:56)
[2022-06-27] MEDS: LIDOCAINE HCL 1% PF 30 ML VIAL 10 ML INFILTRATE (10:57)
--- NOTE | 2022-06-27 11:07 | W.PM.PROC2 ---
Procedure Note - Detailed Date of Procedure 06/27/22 Pre-op Diagnosis High-grade squamous intraepithelial lesion of the cervix Post-op Diagnosis Same Procedure Performed LEEP conization Surgeon Getachew Levy MD Anesthesia MAC and Local Findings Transformation zone retracted but visualized Description of Procedure Patient prepped usual manner for this procedure. 10cc local was injected, and Lugol solution was placed to delineate the transformation zone. Appropriately sized LEEP instrument was selected and the ectocervical specimen was obtained. Endocervical specimen also obtained. Bed of the biopsy site was cauterized using electrocautery with hemostasis achieved. Estimated Blood Loss 20 Drains No Packing No Pathology Yes Complications No immediate complications Condition Stable Disposition PACU [facility] Billing Surgery - Charge Forward: Surgery Billing
[2022-06-27 11:10] VITALS: BP 97/53; PULSE 54; RESP 14; O2SAT 96
[2022-06-27 11:40] VITALS: BP 105/66; PULSE 48; RESP 14; O2SAT 95
[2022-06-27 12:10] VITALS: BP 123/77; PULSE 52; RESP 16
== END 2022-06-27 12:37 | disposition home or self-care (01) ==
PROVIDERS: PCP Family Medicine; Visit Provider Obstetrics & Gynecology
PROC: 0UBC7ZZ Excision of Cervix, Via Natural or Artificial Opening (ICD-10-PCS; CPT 57522; principal; 2022-06-27 10:45)
DX: R87.613 High grade squamous intraepithelial lesion on cytologic smear of cervix (HGSIL) (principal); Z79.51 Long term (current) use of inhaled steroids; F17.210 Nicotine dependence, cigarettes, uncomplicated; D64.9 Anemia, unspecified; M19.90 Unspecified osteoarthritis, unspecified site; I10 Essential (primary) hypertension; J45.909 Unspecified asthma, uncomplicated; E78.5 Hyperlipidemia, unspecified
CPT/HCPCS: 57522; 88305; 88342; A9270; J2250; J2704; J3010; J7120

== ENCOUNTER 2023-03-01 02:19 | Emergency (ER) | payer MEDICARE, SELFPAY ==
[2023-03-01] VITALS (8 sets, daily range): BP systolic 133–148; BP diastolic 80–97; PULSE 60–95; RESP 15–22; TEMP 36.2–36.6; O2SAT 97–100
--- NOTE | 2023-03-01 02:25 | ECG_ITS ---
Measurements Intervals [place] Rate: 59 P: 57 RI: 154 QRS: 61 QRSD: 86 T: 76 QT: 433 QTc: 430 Interpretive Statements SINUS BRADYCARDIA COMPARED TO ECG 05/10/2022 10:23:58 NO SIGNIFICANT CHANGES Electronically Signed On 03-01-2023 12:15:40 CDT by Isaac Mondragon M.D.
[2023-03-01 02:51] LABS: Basophils Absolute Auto 0.1 K/mm3 (0.0-0.1); Basophils Percent Auto 1.4 % (0.2-1.2); Eosinophils Absolute Auto 0.2 K/mm3 (0-0.3); Eosinophils Percent Auto 3.7 % (0-4.4); Hematocrit 37.1 % (37.0-47.0); Hemoglobin 11.3 g/dL (12.0-15.0); Immature Granulocyte Absolute 0.02 K/mm3 (0.00-0.031); Immature Granulocyte Percent A 0.3 % (0-0.5); Immature Platelet Fraction Pct 12.1 % (0.9-11.2); Lymphocytes Absolute Auto 2.94 K/mm3 (0.9-3.2); Mean Corpuscular HGB Conc 30.5 g/dl (32-36); Mean Corpuscular Hemoglobin 20.7 pg (26-34); Mean Corpuscular Volume 67.8 fl (80-100); Monocytes Absolute Auto 0.6 K/mm3 (0.1-0.6); Monocytes Percent Auto 9.3 % (2.6-8.5); Neutrophils Absolute Auto 2.6 K/mm3 (1.3-6.7); Neutrophils Percent Auto 40.3 % (45.5-73.1); Platelet Count Result 198 k/mm3 (150-375); Red Blood Count 5.47 M/mm3 (4.2-5.4); Red Cell Distribution Width 17.5 % (11.5-14.5); White Blood Count 6.5 K/mm3 (4.5-10.0)
[2023-03-01 03:05] LABS: Alanine Aminotransferase 82 U/L (6-35); Alkaline Phosphatase 92 U/L (38-126); Anion Gap 5 mmol/L (8-16); Aspartate Amino Transferase 59 U/L (14-36); Bilirubin,Total 0.6 mg/dL (0.2-1.3); Blood Urea Nitrogen 18 mg/dL (7-17); Calcium 8.5 mg/dL (8.4-10.2); Carbon Dioxide 27 mmol/L (22-30); Chloride 104 mmol/L (98-107); Estimated CRCL calculation 103 ml/min; Estimated Glomerular Filt Rate > 60; Glucose 106 mg/dL (65-110); Potassium 3.6 mmol/L (3.4-5.0); Sodium 136 mmol/L (137-145)
[2023-03-01 03:14] LABS: NT Pro B Type Natriuretic Pept < 20 pg/mL (19.9-100)
[2023-03-01 03:37] LABS: Large Platelets Present; Platelet Estimate Adequate (Adequate); Poikilocytosis 1+ (NORMAL)
[2023-03-01 03:38] LABS: Ovalocytes 1+ (NORMAL); Target Cells 1+ (NORMAL)
[2023-03-01 03:39] LABS: Anisocytosis 2+ (NORMAL); Macrocytosis 1+ (NORMAL); Microcytosis 2+ (NORMAL); Schistocytes None Seen (NORMAL)
--- NOTE | 2023-03-01 07:03 | ED.LOWEXIN ---
HPI - Extremity Injury (Lower) General Chief Complaint: Extremity Injury, Lower Stated Complaint: swelling in legs Time Seen by Provider: 03/01/23 06:05 History of Present Illness HPI Narrative: This is a 47-year-old female who denies significant past medical history, who presents emergency department complaining of bilateral leg swelling for the past week. She states the left leg appears worse than the right. She denies any known trauma and denies history of blood clots. Related Data Home Medications Medication Instructions Recorded Confirmed albuterol sulfate 90 mcg/actuation 2 puff inhalation Q4-5H PRN 12/22/20 07/10/22 aerosol inhaler Shortness Of Breath Or Wheezing meloxicam 7.5 mg tablet 7.5 mg PO DAILY 11/28/21 07/10/22 atorvastatin 20 mg tablet 20 mg PO DAILY 06/24/22 07/10/22 cranberry extract 250 mg tablet 500 mg PO DAILY 06/24/22 07/10/22 ferrous sulfate 325 mg (65 mg 325 mg PO DAILY 06/24/22 07/10/22 iron) tablet (Iron (ferrous sulfate)) multivitamin with minerals-folic 1 tablet PO DAILY 06/24/22 07/10/22 acid 0.4 mg tablet oxybutynin chloride 5 mg 5 mg PO DAILY 06/24/22 07/10/22 tablet,extended release 24 hr Allergies Allergy/AdvReac Type Severity Reaction Status Date / Time No Known Allergies Allergy Verified 09/05/22 15:26 Review of Systems Review of Systems: CONSTITUTIONAL: Denies fever, chills, or sweats. CARDIOVASCULAR: Bilateral lower extremity swelling denies chest pain, palpitations RESPIRATORY: Denies cough or dyspnea. GASTROINTESTINAL: Denies abdominal pain, nausea, vomiting, or diarrhea. GENITOURINARY: Denies dysuria or hematuria. SKIN: Denies rash or itching. MUSCULOSKELETAL: Denies back pain, joint pain, or myalgia. NEUROLOGIC: Denies headache, numbness, dizziness, or weakness. PSYCHIATRIC: Denies anxiety or depression. [facility] Past Medical History Medical History Anemia Arthritis Asthma Hyperlipidemia Hypertension Low grade squamous intraepithelial lesion (LGSIL) Surgical History Surgical History H/O LEEP (06/27/22) HGSIL History of laparotomy ectopic Family History Family History Mother Diabetes mellitus Cerebrovascular accident Father Throat cancer Grandparent Bone cancer paternal grandfather Other CHF (congestive heart failure) Social History Social History Smoking packs per day: 1 Smoking cigarettes per day: 20.0 Years smoked: 35 Smoking pack-years: 35.00 Smoking status: Current every day smoker Tobacco type: cigarettes Alcohol intake: former Substance use: never Substance use type: does not use Living arrangements: alone Occupation/Education: occupation 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 HEAD: Normocephalic, atraumatic. EYES: PERRLA and EOMI. ENT: Nares clear, no rhinorrhea or epistaxis. Mucous membranes moist. Oropharynx without tonsillar hypertrophy exudate or other lesions. NECK: Supple. No adenopathy or masses. No carotid bruits or JVD CHEST: Clear to auscultation. No respiratory distress. No wheezes rales or rhonchi HEART: Regular rate and rhythm. No murmur heard. Normal peripheral pulses. ABDOMEN: Soft, nontender, nondistended, normal active bowel sounds. EXTREMITIES: Normal range of motion. Mild bilateral lower extremity swelling, the left slightly worse than the right without edema SKIN: Warm, dry, no rash. NEURO: No focal deficits. Alert and oriented x3. PSYCH: Normal mood and affect. Course Course Emergency Course: 06:20 -
== END 2023-03-01 07:12 | disposition home or self-care (01) ==
PROVIDERS: Emergency Provider Preventive Medicine Aerospace Medicine; PCP Family Medicine
DX: R22.43 Localized swelling, mass and lump, lower limb, bilateral (principal); J45.909 Unspecified asthma, uncomplicated; I10 Essential (primary) hypertension; E78.5 Hyperlipidemia, unspecified; M19.90 Unspecified osteoarthritis, unspecified site; F17.210 Nicotine dependence, cigarettes, uncomplicated; R00.1 Bradycardia, unspecified
CPT/HCPCS: 36415; 80053; 83880; 85025; 85055; 93005; 99284

== ENCOUNTER 2025-02-22 20:49 | Emergency (ER) | payer MEDICARE, SELFPAY ==
--- NOTE | ~2025-02-22 | XR_ITS ---
CHEST RADIOGRAPH, PA AND LATERAL CLINICAL HISTORY: sob . COMPARISON: 11/28/2021 TECHNIQUE: PA and lateral views of the chest. FINDINGS The cardiomediastinal silhouette is unremarkable. The lungs are clear. Visualized osseous structures and soft tissues are unremarkable. IMPRESSION: No focal infiltrate or effusion. Reviewed, dictated and finalized at location A.
[2025-02-22 20:52] VITALS: BP 184/91; PULSE 66; RESP 19; TEMP 36.5; O2SAT 96
--- OUTSIDE RECORDS SUMMARY | 2025-02-22 20:52 | XMS_ITS | Referral Summary ---
Author Organization [facility] Address [address] [place] [address] Care Team Providers Care Tnt Line Supervisor Name Role Phone John Mccabe MD Primary Care Provider [phone] Allergies No known active allergies Medications albuterol HFA (PROVENTIL HFA,VENTOLIN HFA,PROAIR HFA) 90 mcg/actuation inhaler Inhale 2 puffs 03/17/2022 Active atorvastatin (LIPITOR) 20 mg tablet Take 20 mg by mouth daily 02/16/2022 Active cholecalciferol (VITAMIN D-3) 25 mcg (1,000 unit) tablet Take 1,000 Units by mouth daily 02/16/2022 Active meloxicam (MOBIC) 7.5 mg tablet Take 7.5 mg by mouth daily 03/15/2022 Active oxybutynin XL (DITROPAN-XL) 5 mg 24 hr tablet Take 5 mg by mouth daily 01/27/2022 Active hydroCHLOROthiaz vaughn (HYDRODIURIL) 25 mg tablet Take 25 mg by mouth daily Active Active Problems Problem Noted Date Diagnosed Date Leg swelling 11/21/2022 Assessment & Plan (11/21/2022 11:48 AM LIFE TRAINER): Bilateral lower extremity edema improving with compression therapy. Still having some upper thigh edema. I have written a prescription for new compression stocking at thigh level. Can follow-up p.r.n.. Leg swelling 04/03/2022 Assessment & Plan (04/03/2022 9:29 AM CDT): Assessment/plan: Bilateral lower extremity edema with spider and reticular veins. We had a long discussion regarding the importance of compression therapy. I have written prescription for compression stockings. We will trial this for 6 months with follow-up in the office. Pending this she may need bilateral lower extremity reflux promotion producer study. Mixed hyperlipidemia 04/03/2022 Assessment & Plan (11/21/2022 11:48 AM LIFE TRAINER): Stable continue Lipitor 20 mg Assessment & Plan (04/03/2022 9:30 AM CDT): Lipitor Immunizations Immunization Administration Dates Next Due DT 12/11/1998 Social History Tobacco Use Types Packs/Day Years Used Date Smoking Tobacco: Every Day Cigarettes Smokeless Tobacco: Never Personal Safety Answer Date Recorded Getting School Help Needed Not on file 01/03 Comments Unknown Sex and Gender Information Value Date Recorded Sex Assigned at Not on file Legal Sex Female 9:10 AM CDT Gender Identity Not on file Sexual Orientation Not on file Last Filed Vital Signs Vital Sign Reading Time Taken Comments Blood Pressure 112/74 04/03/2022 8:38 AM CDT Pulse 59 04/03/2022 8:38 AM CDT Temperature - - Respiratory Rate - - Oxygen Saturation - - Inhaled Oxygen Concentration - - Weight 88.5 kg (195 lb) 11/20/2022 9:13 AM LIFE TRAINER Height 162.6 cm (5' 4 ) 11/20/2022 9:13 AM LIFE TRAINER Body Mass Index 33.47 11/20/2022 9:13 AM LIFE TRAINER Plan of Treatment Not on file Insurance [facility] CHO[facility] PL[facility] Care Teams Tnt Line Supervisor Relationship Specialty Start Date End Date John Mccabe MD PCP - General Family Medicine 03/07/22
--- OUTSIDE RECORDS SUMMARY | 2025-02-22 20:52 | XMS_ITS | Data Portability ---
Author Organization [facility] Address [address] [place] [address] Assessment Encounter Date Assessment Date Assessment LastModified by Organization Details LastModified Time 06/14/2024 06/14/2024 Reviewed research. There are some studies that show that cinnamon can lower blood pressure, and there is evidence to support no adverse reactions. [email or web address] Not available 06/14/2024 12:44:53 Plan of Treatment Reminders Order Date Submit Date Provider Last Modified By Organization Details Last Modified Time Details Appointments None recorded. Lab TSH, ultra-sens itive, serum 2023 024 [email or web address] [facility], [address] [place] [address], [address], [place], [address], 5 09:42:02 lipid panel, serum 2023 024 [email or web address] [facility], [address] [place] [address], [address], [place], [address], 5 09:42:02 CMP, serum or plasma 2023 024 [email or web address] [facility], [address] [place] [address], [address], [place], [address], 5 13:56:22 CBC 2023 024 [email or web address] [facility], [address] [facility], [address], [place], [address], 5 09:42:02 albumin/cr eatinine, mass ratio, urine 2023 024 [email or web address] ALEJANDRA, [address], [address], [place], [address], 5 09:42:02 CBC 2014 015 BRENDA ROBERTS, [address], [address], [place], [address], 5 08:34:47 vitamin B12 + folate, serum or blood 2014 015 BRENDA ROBERTS, [address], [address], [place], [address], 5 08:34:49 CMP, serum or plasma 2014 015 BRENDA ROBERTS, [address], [address], [place], [address], 5 08:34:47 glucose tolerance test, post-75G, 3 specimens 2014 015 BRENDA ROBERTS, [address], [address], [place], [address], 5 08:34:48 HbA1c (hemoglobi n A1c), blood 2014 015 BRENDA ROBERTS, [address], [address], [place], [address], 5 08:34:49 Referral orthopedic referral - Please contact patient to schedule. 2014 015 [facility], [address] [facility], [place], [address], 5 10:32:10 Procedures None recorded. Surgeries None recorded. Imaging ankle brachial index 2023 024 [facility] ([facility]), [address] [place], [address], 5 12:05:22 US, extremity, nonvascula r 2023 024 [facility] ([facility]), [address] [place], [address], 5 12:05:22 MAMMO, screening, digital, bilateral 2023 024 [facility] ([facility]), [address] [place], [address], 5 10:26:31 XR, chest 2023 024 [facility] ([facility]), [address] [place], [address], 5 10:26:31 electromyo gram/nerve conduction study [address] [facility] On [facility] Orders, [address] [place], [address], 5 09:27:53 doppler, venous [address] ([facility] Scheduling), [address] [place], [address], 5 17:11:04 Medication Orders Naprosyn 500 mg tablet 2023 024 [facility] #[id number], [address], [place], [address], 4 12:43:42 albuterol sulfate HFA 90 mcg/actuat ion aerosol inhaler 2023 024 [facility]/Pharmacy #[id number], [address], [place], [address], 4 12:43:42 furosemide 40 mg tablet 2014 015 [facility], [address] [place] [address] , [address], [place], [place], [id number], 4 09:23:37 potassium citrate ER 10 mEq (1,080 mg) tablet,ext ended release 2014 015 [facility], [address] [place] [address] , [address], [place], [place], [id number], 4 09:26:04 furosemide 20 mg tablet 2014 [id number], [address], [place], [place], [id number], 4 09:23:33 potassium citrate ER 10 mEq (1,080 mg) tablet,ext ended release 2014 015 [facility] #[id number], [address], [place], [place], [id number], 4 09:26:04 Patient TargetsNo targets recorded. Patient Instructions Encounter Date Encounter Id Patient Instructions Last Modified By Organization Details Last Modified Time 01/12/2015 [id number] bipolar disorder : care instructions strice Not available 01/12/2015 12:29:16 learning about mood disorders strice Not available 01/12/2015 12:29:16 deciding about using medicines to quit smoking str[facility] Not available 01/12/2015 12:29:16 Quitting Tobacco : Care Instructions strice Not available 01/12/2015 12:29:16 09/11/2015 [id number] leg and ankle edema: care instructions [email or web address] Not available 09/12/2015 14:02:53 D/C naproexen, she is so instructed,. Go to ER any time any time. other nogueira come back for F/U visit in about one month after completing the tests as ordered above, she understod and agreed,. [email or web address] Not available 09/11/2015 18:32:18 10/09/2015 [id number] bipolar disorder : care instructions [facility] Not available 10/09/2015 17:29:30 learning about mood disorders si Not available 10/09/2015 17:29:30 deciding about using medicines to quit smoking si Not available 10/09/2015 17:29:30 Quitting Tobacco : Care Instructions [facility] Not available 10/09/2015 17:29:30 controlling your asthma: care instructions [facility] Not available 10/09/2015 17:29:30 learning about asthma si Not available 10/09/2015 17:29:30 leg and ankle edema: care instructions [facility] Not available 10/09/2015 17:29:30 ulnar neuropathy (handlebar palsy): exercises [facility] Not available 10/09/2015 17:29:31 She will return to regular work on 10/10/2015. Also she will call back to Ms. Melania burnette for the results of her doppler study. She understood and agreed. [facility] Not available 10/09/2015 17:29:31 Reason for Referral Orthopedic Referral for Ulna r neuropathy Please contact patient to schedule. Referring Physician: Jose Zazueta, Internal Medicine, Encounter Date: 10/09/2015 Results Created Date Observation Date Name Description Value Unit Range Abnormal Flag Note LastModifiedBy Organization Detail LastModifiedTime 09/12/20 15 09/13/2015 CBC WBC 9.8 x10e3 /uL 3.4-10 .8 Not Available [facility] ([facility]) [address] [place], [address], 09/13/2015 08:34:46 09/12/20 15 09/13/2015 CBC RBC 5.47 x10e6 /uL 3.77-5 .28 above high normal Not Available [facility] ([facility]) [address] [place], [address], 09/13/2015 08:34:46 09/12/20 15 09/13/2015 CBC hemoglobin 11.4 g/dL 11.1-1 5.9 Not Available [facility] ([facility]) [address] [place], [address], 09/13/2015 08:34:46 09/12/20 15 09/13/2015 CBC hematocrit 35.2 % 34.0-4 6.6 Not Available [facility] ([facility]) [address] [place], [address], 09/13/2015 08:34:46 09/12/20 15 09/13/2015 CBC MCV 64 fL 79-97 below low normal Not Available [facility] ([facility]) [address] [place], [address], 09/13/2015 08:34:46 09/12/20 15 09/13/2015 CBC MCH 20.8 pg 26.6-3 3.0 below low normal Not Available [facility] ([facility]) [address] [place], [address], 09/13/2015 08:34:46 09/12/20 15 09/13/2015 CBC MCHC 32.4 g/dL 31.5-3 5.7 Not Available [facility] ([facility]) [address] [place], [address], 09/13/2015 08:34:46 09/12/20 15 09/13/2015 CBC RDW 15.5 % 12.3-1 5.4 above high normal Not Available [facility] ([facility]) [address] [place], [address], 09/13/2015 08:34:46 09/12/20 15 09/13/2015 CBC platelets 181 x10e3 /uL 150-37 9 Not Available [facility] ([facility]) [address] [place], [address], 09/13/2015 08:34:46 09/12/20 15 09/13/2015 CBC neutrophils 67 % Not Avai lable [facility] ([facility]) [address] [place], [address], 09/13/2015 08:34:46 09/12/20 15 09/13/2015 CBC lymphs 24 % Not Available [facility] ([facility]) [address] [place], [address], 09/13/2015 08:34:46 09/12/20 15 09/13/2015 CBC monocytes 5 % Not Availa ble [facility] ([facility]) [address] [place], [address], 09/13/2015 08:34:46 09/12/20 15 09/13/2015 CBC eos 4 % Not Available [facility] ([facility]) [address] [place], [address], 09/13/2015 08:34:46 09/12/20 15 09/13/2015 CBC basos 0 % Not Available [facility] ([facility]) [address] [place], [address], 09/13/2015 08:34:46 09/12/20 15 09/13/2015 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 0 Not Available [facility] ([facility]) [address] [place], [address], 09/13/2015 08:34:46 09/12/20 15 09/13/2015 CBC lymphs (absolute) 2.4 x10e3 /uL 0.7-3. 1 Not Available [facility] ([facility] [address] [place], [address], 09/13/2015 08:34:46 09/12/20 15 09/13/2015 CBC monocytes(ab solute) 0.5 x10e3 /uL 0.1-0. 9 Not Available [facility] ([facility]) [address] [place], [address], 09/13/2015 08:34:46 09/12/20 15 09/13/2015 CBC eos (absolute) 0.4 x10e3 /uL 0.0-0. 4 Not Available [facility] ([facility]) [address] [place], [address], 09/13/2015 08:34:46 09/12/20 15 09/13/2015 CBC baso (absolute) 0.0 x10e3 /uL 0.0-0. 2 Not Available [facility] ([facility]) [address] [place], [address], 09/13/2015 08:34:46 09/12/20 15 09/13/2015 CBC immature granulocytes 0 % Not Available [facility] ([facility]) [address] [facility], [place], [address], 09/13/2015 08:34:46 09/12/20 15 09/13/2015 CBC immature grans (abs) 0.0 x10e3 /uL 0.0-0. 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 Not Available [facility] ([facility]) [address] [place], [address], 09/13/2015 08:34:46 09/12/20 15 09/13/2015 CMP, serum or plasm a glucose, serum 96 mg/dL 65-99 Not Available [facility] ([facility]) [address] [place], [address], 09/13/2015 08:34:47 09/12/20 15 09/13/2015 CMP, serum or plasm a BUN 8 mg/dL 6-24 Not Available [facility] ([facility]) [address] [place], [address], 09/13/2015 08:34:47 09/12/20 15 09/13/2015 CMP, serum or plasm a creatinine, serum 0.78 mg/dL 0.57-1 .00 Not Available [facility] ([facility]) [address] [place], [address], 09/13/2015 08:34:47 09/12/20 15 09/13/2015 CMP, serum or plasm a eGFR if nonafricn AM 95 mL/mi n/1.7 3 >59 Not Available [facility] ([facility]) [address] [facility], [place], [address], 09/13/2015 08:34:47 09/12/20 15 09/13/2015 CMP, serum or plasm a eGFR if africn AM 110 mL/mi n/1.7 3 >59 Not Available [facility] ([facility]) [address] [facility], [place], [address], 09/13/2015 08:34:47 09/12/20 15 09/13/2015 CMP, serum or plasm a BUN/creatini ne ratio 10 9-23 Not Available [facility] ([facility]) [address] [place], [address], 09/13/2015 08:34:47 09/12/20 15 09/13/2015 CMP, serum or plasm a sodium, serum 141 mmol/ L 134-14 4 Not Available [facility] ([facility]) [address] [place], [address], 09/13/2015 08:34:47 09/12/20 15 09/13/2015 CMP, serum or plasm a potassium, serum 3.8 mmol/ L 3.5-5. 2 Not Available [facility] ([facility]) [address] [place], [address], 09/13/2015 08:34:47 09/12/20 15 09/13/2015 CMP, serum or plasm a chloride, serum 101 mmol/ L 97-108 Not Available [facility] ([facility]) [address] [place], [address], 09/13/2015 08:34:47 09/12/20 15 09/13/2015 CMP, serum or plasm a carbon dioxide, total 23 mmol/ L 18-29 Not Available [facility] ([facility]) [address] [place], [address], 09/13/2015 08:34:47 09/12/20 15 09/13/2015 CMP, serum or plasm a calcium, serum 9.1 mg/dL 8.7-10 .2 Not Available [facility] ([facility]) [address] [place], [address], 09/13/2015 08:34:47 09/12/20 15 09/13/2015 CMP, serum or plasm a protein, total, serum 6.9 g/dL 6.0-8. 5 Not Available [facility] ([facility]) [address] [place], [address], 09/13/2015 08:34:47 09/12/20 15 09/13/2015 CMP, serum or plasm a albumin, serum 4.0 g/dL 3.5-5. 5 Not Available [facility] ([facility]) [address] [place], [address], 09/13/2015 08:34:47 09/12/20 15 09/13/2015 CMP, serum or plasm a globulin, total 2.9 g/dL 1.5-4. 5 Not Available [facility] ([facility]) [address] [place], [address], 09/13/2015 08:34:47 09/12/20 15 09/13/2015 CMP, serum or plasm a A/G ratio 1.4 1.1-2. 5 Not Available [facility] ([facility]) [address] [place], [address], 09/13/2015 08:34:47 09/12/20 15 09/13/2015 CMP, serum or plasm a bilirubin, total 0.3 mg/dL 0.0-1. 2 Not Available [facility] ([facility]) [address] [place], [address], 09/13/2015 08:34:47 09/12/20 15 09/13/2015 CMP, serum or plasm a alkaline phosphatase, S 81 IU/L 39-117 Not Available [facility] ([facility] [address] [place], [address], 09/13/2015 08:34:47 09/12/20 15 09/13/2015 CMP, serum or plasm a AST (SGOT) 21 IU/L 0-40 Not Available [facility] ([facility]) [address] [place], [address], 09/13/2015 08:34:47 09/12/20 15 09/13/2015 CMP, serum or plasm a ALT (SGPT) 22 IU/L 0-32 Not Available [facility] ([facility]) [address] [place], [address], 09/13/2015 08:34:47 09/12/20 15 09/13/2015 gluco se shira ance test, post- 75G, 3 speci mens glucose, fasting 101 mg/dL 65-99 above high normal Not Available [facility] ([facility]) [address] [place], [address], 09/13/2015 08:34:48 09/12/20 15 09/13/2015 gluco se shira ance test, post- 75G, 3 speci mens glucose, 1/2 hour TNP TEST NOT PERFO RMED Not Available [facility] ([facility]) [address] [place], [address], 09/13/2015 08:34:48 09/12/20 15 09/13/2015 gluco se shira ance test, post- 75G, 3 speci mens glucose, 1 hour 153 mg/dL 65-199 Not Available [facility] ([facility]) [address] [place], [address], 09/13/2015 08:34:48 09/12/20 15 09/13/2015 gluco se shira ance test, post- 75G, 3 speci mens glucose, 1 1/2 hour TNP TEST NOT PERFO RMED Not Available [facility] ([facility]) [address] [place], [address], 09/13/2015 08:34:48 09/12/20 15 09/13/2015 gluco se shira ance test, post- 75G, 3 speci mens glucose, 2 hour 115 mg/dL 65-139 Not Available [facility] ([facility]) [address] [place] [address], [address], 09/13/2015 08:34:48 09/12/20 15 09/13/2015 gluco se shira ance test, post- 75G, 3 speci mens glucose, 3 hour TNP TEST NOT PERFO RMED Not Available [facility] ([facility]) [address] [place], [address], 09/13/2015 08:34:48 09/12/20 15 09/13/2015 gluco se shira ance test, post- 75G, 3 speci mens glucose, 4 hour TNP TEST NOT PERFO RMED Not Available [facility] ([facility]) [address] [place], [address], 09/13/2015 08:34:48 09/12/20 15 09/13/2015 gluco se shira ance test, post- 75G, 3 speci mens glucose, 5 hour TNP TEST NOT PERFO RMED Not Available [facility] ([facility]) [address] [facility], [place], [address], 09/13/2015 08:34:48 09/12/20 15 09/13/2015 gluco se shira ance test, post- 75G, 3 speci mens glucose, 6 hour TNP TEST NOT PERFO RMED Not Available [facility] ([facility]) [address] [facility], [place], [address], 09/13/2015 08:34:48 09/12/20 15 09/13/2015 vitam in B12 + folat e, serum or blood vitamin B12 369 pg/mL 211-94 6 Not Available [facility] ([facility]) [address] [facility], [place], [address], 09/13/2015 08:34:49 09/12/20 15 09/13/2015 vitam in B12 + folat e, serum or blood folate (folic acid), serum 5.0 NG/mL >3.0 A SERUM FOLAT E ODILON NTRAT ION OF LESS THAN 3.1 NG/ML IS CONSI DERED TO REPRE SENT CLINI [facility] IENCY . Not Available [facility] ([facility]) [address] [facility], [place], [address], 09/13/2015 08:34:49 09/12/20 15 09/13/2015 HbA1c (hemo globi n A1c), blood hemoglobin A1C 5.2 % 4.8-5. 6 PRE-D IABET ES: 5.7 - 6.4 DIABE EDUAR: >6.4 GLYCE GIOVANNI CONTR OL FOR ADULT S WITH DIABE EDUAR: <7.0 Not Available [facility] ([facility]) [address] [facility], [place], [address], 09/13/2015 08:34:49 11/24/20 15 imagi ng/di agnos tic resul t No observ ation record ed. [email or web address] Not Available 2014 17:18:42 Result Notes None recorded. Problems Name Problem SNOMED Code Status Onset Date Resolution Date Notes Provider Name and Address Organization Details Recorded Time Strain of neck muscle 799086009 Nilay Zazueta MD Attn: Nicole lara,[address] [facility], [place], [address], [place] [facility] 5 12:16:35 Low back strain 173045432 Active Jose Zazueta MD Attn: Nicole g,[address] [facility], [place], [address], [place] [facility] 5 12:16:35 Chronic obstructive pulmonary disease 44112150 Active Jose Zazueta MD Attn: Nicole lara,[address] [facility], [place], [address], [place] [facility] 5 17:29:30 Tobacco dependence syndrome 35044649 Active Jose Zazueta MD Attn: Nicole g,[address] [facility], [place], [address], [place] [facility] 5 17:29:30 Bipolar disorder 55545617 Nilay Zazueta MD Attn: Nicole lara,[address] [facility], [place], [address], [place] [facility] 5 17:29:30 Edema of lower extremity 904696781 Nilay Zazueta MD Attn: Nicole lara,[address] [facility], [place], [address], [place] [facility] 5 17:29:30 Sensory neuropathy 25798524 Nilay Zazueta MD Attn: Nicole lara,[address] [place], [address], [place] [facility] 5 18:34:15 Asthma 861496838 Active Jose Zazueta MD Attn: Nicole lara,[address] [place], [address], [place] [facility] 5 17:29:30 Ulnar neuropathy 565141412 Active Jose Zazueta MD Attn: Nicole lara,[address] [facility], [place], [address], [facility] 5 17:29:30 Problem Notes None recorded. Procedures Surgical History Date Name Laterality Status Provider Name and Address Organization Details Recorded Time laparotomy completed Aleyda Bradford [facility] 06/14/2024 09:32:03 thumb surgery completed Aleyda Bradford [facility] 06/14/2024 09:32:28 procedure on wrist completed Aleyda Bradford [facility] 06/14/2024 09:32:40 procedure on lung completed Aleyda Bradford [facility] 06/14/2024 09:33:46 Imaging Results Imaging Date Name Status LastModified by [facility] Details LastModified Time 09/26/2015 imaging/diag nostic result completed [facility] Information not available 10/09/2015 17:18:42 Procedure Notes None recorded. Medical Equipment None Reported. Allergies No known drug allergies Medications Name Sig Start Date Stop Date Status Note LastModified by Organization Details LastModified Time furosemide 40 mg tablet Take 1 tablet every day by oral route for 30 days. 06/14 completed Not Available Not Available Not Available methocarbam ol 500 mg tablet 06/14 completed Not Available Not Available Not Available atorvastati n 20 mg tablet Take 1 tablet every day by oral route. active Not Available Not Available No t Available risperidone 4 mg tablet 06/14 completed Not Available Not Available Not Available hydrocodone 5 mg-acetamin ophen 325 mg tablet 06/14 completed Not Available Not Available Not Available risperidone 2 mg tablet 06/14 completed Not Available Not Available Not Available meloxicam 7.5 mg tablet Take 1 tablet every day by oral route. active Not Available Not Available No t Available trazodone 100 mg tablet 06/14 completed Not Available Not Available Not Available potassium citrate ER 10 mEq (1,080 mg) tablet,exte nded release TAKE 1 TABLET BY MOUTH DAILY WITH MEAL 06/14 completed Not Available Not Available Not Available naproxen sodium 550 mg tablet 06/14 completed Not Available Not Available Not Available hydrochloro thiazide 25 mg tablet Take 1 tablet every day by oral route. active Not Available Not Available No t Available furosemide 20 mg tablet TAKE 1 TABLET BY MOUTH DAILY 06/14 completed Not Available Not Available Not Available lisinopril 10 mg-hydrochl orothiazide 12.5 mg tablet 06/14 completed Not Available Not Available Not Available albuterol sulfate HFA 90 mcg/actuati on aerosol inhaler INHALE 2 PUFFS BY MOUTH 4 TIMES A DAY NEEDED active Not Available Not Available No t Available trihexyphen idyl 2 mg tablet 06/14 completed Not Available Not Available Not Available oxybutynin chloride 5 mg tablet Take 1 tablet twice a day by oral route. active Not Available Not Available No t Available risperidone 1 mg tablet 06/14 completed Not Available Not Available Not Available naproxen 500 mg tablet TAKE 1 TABLET BY MOUTH TWICE DAILY NEEDED FOR PAIN, TAKE WITH FOOD active Not Available Not Available No t Available iron 65 mg tablet Take by oral route. active Not Available Not Available No t Available Cinnamon active Not Available Not Avai lable Not Available Myrbetriq 50 mg tablet,exte nded release 06/14 completed Not Available Not Available Not Available albuterol 90 mcg-budeson vaughn 80 mcg/actuati on HFA aerosol inhaler Inhale 2 inhalatio ns as needed by inhalatio n route as needed. active Not Available Not Available No t Available Vitals Date Recorded Body weight Oxygen saturation Oxygen saturation in Arterial blood by Pulse oximetry Body height Body mass index (BMI) Body temperature Heart rate Systolic blood pressure Diastolic blood pressure Provider Name and Address Organization Details Last Updated DateTime 5 32129.6 87674 g 98 % 98 % 161.29 cm 36.3 kg/m2 98.8 [degF] 83 /min 112 mm[Hg] 68 mm[Hg] Prashanth Hector [place] [facility] 5 17:53:27 Date Recorded Body weight Oxygen saturation Oxygen saturation in Arterial blood by Pulse oximetry Body height Body mass index (BMI) Body temperature Heart rate Systolic blood pressure Diastolic blood pressure Provider Name and Address Organization Details Last Updated DateTime 5 77884.1 56613 g 98 % 98 % 161.29 cm 37.3 kg/m2 99.1 [degF] 80 /min 138 mm[Hg] 70 mm[Hg] Prashanth Hector MA [facility] 5 15:44:07 Date Recorded Body weight Body mass index (BMI) Body height Body temperature Respiratory rate Oxygen saturation Oxygen saturation in Arterial blood by Pulse oximetry Heart rate Systolic blood pressure Diastolic blood pressure Provider Name and Address Organization Details Last Updated DateTime 4 09620.0 7 g 35 kg/m2 161.29 cm 97.7 [degF] 16 /min 97 % 97 % 62 /min 122 mm[Hg] 80 mm[Hg] Aleyda Bradford MA [facility] 4 09:36:08 Date Recorded Oxygen saturation Oxygen saturation in Arterial blood by Pulse oximetry Body weight Heart rate Body mass index (BMI) Body height Body temperature Systolic blood pressure Diastolic blood pressure Provider Name and Address Organization Details Last Updated DateTime 5 98 % 98 % 56263.9 97903 g 77 /min 29.6 kg/m2 161.29 cm 97.9 [degF] 104 mm[Hg] 70 mm[Hg] Prashanth Hector MA [facility] 5 11:52:09 Social History Question Answer Notes LastModified by Organizat ion Details LastModified Time Tobacco Smoking Status Current Every Day Smoker Aleyda Bradford MA [facility], [facility] 06/14/2024 09:31:24 What Is Your Level Of Alcohol Consumption? None Information not available 01/12/2015 What Is Your Level Of Caffeine Consumption? Moderate Information not available 06/14/2024 What Was The Date Of Your Most Recent Tobacco Screening? 06/14/2024 Information not available 06/14/2024 At What Age Did You Start Smoking Tobacco? 9 Information not available 06/14/2024 How Much Tobacco Do You Smoke? 0.5 PPD Information not available 06/14/2024 Do You Use Any Illicit Or Recreational Drugs? No Information not available 06/14/2024 Has Tobacco Cessation Counseling Been Provided? Yes Information not available 06/14/2024 On What Date Was Tobacco Cessation Counseling Provided? 06/14/2024 Information not available 06/14/2024 How Many Years Have You Smoked Tobacco? 39 Information not available 06/14/2024 Do You Or Have You Ever Used Any Other Forms Of Tobacco Or Nicotine? No Information not available 06/14/2024 Sex: Female Functional Status None recorded. Mental Status None recorded. Family History Relationship Description Onset Age of this Age Resolved Age Notes LastModified by Organization Details LastModified Time Mother Asthma Not available 01/12/2015 11:52:09 Mother Diabetes mellitus [email or web address] Not available 01/12 11:52:09 Medical History Condition Response Coronary Artery Disease N Other N Atrial Fibrillation N High Blood Pressure N Depression N COPD N Blood Clots N Anxiety Disorder N Muscle, Joint, or Bone Problems N Arthritis N Acid Reflux (GERD) N Cancer N Stroke N ADHD N High Cholesterol N Liver Disease N Headaches N Schizophrenia N Kidney or Bladder Problems N Thyroid Problems N GI Problems N Have you had a mammogram in the last yea r? N Eating Disorder N Skin Problems N Anemia Y Heart Attack ([place]) N Diabetes N Seizures/Epilepsy N Have you had a colonoscopy in the last 1 0 years? N Asthma Y Allergies N Have you had a PSA blood test in the las t year? N Substance Abuse N Hepatitis N Osteoporosis N Heart Failure N Gynecological HistoryNo gynecological history recorded. Obstetrics History GPAL:G 0 P 0 0 0 0 Past Encounters Encounter ID Performer Location Encounter Start Date Encounter Closed Date Diagnosis/Indication Diagnosis SNOMED-CT Code Diagnosis ICD10 Code Diagnosis Note [id number] ROMI Renee (Adult Med) [address] [place] [phone] 01/12/2015 10:43:45 01/12/2015 14:03:50 Strain of neck muscle 043055604 Low back strain 270566389 Chronic ob structive pulmonary disease 50340337 Tobacco de pendence syndrome 86937846 Bipolar disorder 38136682 [id number] Zamzam Rojo (Adult Med) [address] [place] [phone] 0 09/11/2015 15:52:46 09/12/2015 10:44:17 Edema of lower extremity 273691269 R60.0 Sensory neuropathy 40211 005 G60.8 [id number] Darrel Persaud (Adult Med) [address] [place] [address] 10/09/2015 14:48:36 10/09/2015 21:40:15 Edema of lower extremity 233789543 R60.0 Chronic ob structive pulmonary disease 68268170 J44.9 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 Has been out of blood pressure medication . Has been taking 1000mg of Cinnamon daily. Blood pressure good today. Will remain off prescripti on medication for now. Will return for fasting blood work. Hyperlipidemia 14448106 E78.5 Has been off hyperlipid emia medication for some time. Will return for lipid profile. Then will likely resume medication . Skin nodule 84992605 R22 .9 Dyspnea 233699546 R06.00 Osteoarthritis 231775927 M19.90 Osteoarthr itis of back and neck. Encouraged exercise and weight control. Discussed physical therapy. She said it has caused her pain in the past. Can not tolerate Meloxicam because it made her tired. Cannot tolerated Tylenol because it causes fatigue. Will try Naprosyn BID. Stressed the importance of not taking regularly due to GI irritation . Goiter 3733490 E04.9 Thyroid diffusely enlarged. Will get TSH. Weak arterial pulse 3152 10898 R09.89 Has decreased pedal pulse on left side. Will check ankle brachial pulse. Screening for malignant neoplasm of breast 353337320 Z12.39 Nicotine user 017067923 Z72.0 Will discuss cessation at follow up. Health Concerns Section Related Observation LastModified by Organization Detai ls LastModified Time None Recorded Concern Status LastModified by Organization Details LastModified Time None Recorded Advance Directives Directive None Recorded Payers Encounter Date Sequence Insurance Name Policy Number Policy Colby Covered Member ID Colby Member ID Guarantor Name 09/11/2015 1 [facility] (MEDICAID HMO) [id number] Denisa Bergman [id number] Denisa Bergman 10/09/2015 1 [facility] (MEDICAID HMO) [id number] Denisa Bergman [id number] Denisa Bergman 06/14/2024 2 [place] Denisa Bergman [id number] Denisa Bergman 06/14/2024 1 [facility] (MEDICARE REPLACEMENT/A DVANTAGE - HMO) [id number] Denisa Bergman [id number] Denisa Bergman Notes Date Note Type Note Provider Name and Address Organization Details Recorded Time 09/11/2015 text/html 1. Water retenti on of both legs for about a months. 2. Numberness of left hand and both feet , no pain, , no recent infury.. 3. a cigarette smoker . 4. On some psychiatric medications. Jose Zazueta MD Attn: [address] [place], [address], [facility] 09/11/2015 18:35:06 10/09/2015 text/html Still has edema of legs, has history of Thalathemia minor. Jose Zazueta MD Attn: [address] [place], [address], [facility] 10/09/2015 17:29:45 06/14/2024 text/html here to [facility], needs med refills, has veins on legs, they do not cause pain, they get darker when stand a lot, has a knot on right superior thigh, would like to be tested for diabetes, runs in family, awhile back feet felt like they were going to explode, they felt swollen but they weren't swollen, they feel that way when she is on them for awhile, sharp pains from bottom of foot up leg, takes medication for hypertension and hyperlipidemia, takes medication for osteoarthritis in lower back and neck, has been out of all medicine for over a year, has been controlling blood pressure with cinnamon, not sure how well blood pressure is controlled, sometimes tired, can be sitting watching TV and falls asleep, no chest pain, occasional shortness of breath when talks a lot, not with stairs but notices it with going up a hill, smoking since [age], smokes a half a pack to a pack a day, was taking Meloxicam for arthritis, was not taking it every day, it caused drowsiness so took it on days wasn't working, that was only thing tried, grandfather had bone cancer, father had lung cancer, taking cinnamon 1000mg to control blood pressure, was using albuterol and keeps one at home and one in car, Tylenol makes her nauseated, Lala Elliott MD Attn: [address] [facility], [place], [address], [facility] 06/14/2024 12:45:11 OBGyn Episode No OBEpisode recorded.
--- OUTSIDE RECORDS SUMMARY | 2025-02-22 20:52 | XMS_ITS | Clinical Summary ---
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 Mixed hyperlipidemia 04/03/2022 Assessment & Plan (11/21/2022 11:48 AM FLEXIBLE SHAFT WINDER): Stable continue Lipitor 20 mg Assessment & Plan (04/03/2022 9:30 AM CDT): Lipitor Immunizations Immunization Administration Dates Next Due DT 12/11/1998 Surgical History Surgery Date Site/Laterality Comments WRIST SURGERY 11/03/2002 - 11/02/2003 Right LAPAROTOMY 11/03/2004 - 11/02/2005 Medical History Medical History Date Comments Asthma Hyperlipidemia Hypertension Family History Medical History Relation Name Comments No Known Problems Brother kidney issues Daughter Cancer Father No Known Problems Maternal Grandfather Heart disease Maternal Grandmother Hypertension Maternal Grandmother COPD Mother Diabetes Mother Hypertension Mother Stroke Mother Cancer Paternal Grandfather No Known Problems Paternal Grandmother No Known Problems Son Relation Name Status Comments Brother Daughter Father Maternal Grandfather Maternal Grandmother Mother Paternal Grandfather Paternal Grandmother Son Social History Tobacco Use Types Packs/Day Years Used Date Smoking Tobacco: Every Day Cigarettes Smokeless Tobacco: Never Personal Safety Answer Date Recorded Getting School Help Needed Not on file 01/03 Comments Unknown Sex and Gender Information Value Date Recorded Sex Assigned at Not on file Legal Sex Female 9:10 AM CDT Gender Identity Not on file Sexual Orientation Not on file Obstetrics History Last Filed Vital Signs Vital Sign Reading Time Taken Comments Blood Pressure 112/74 04/03/2022 8:38 AM CDT Pulse 59 04/03/2022 8:38 AM CDT Temperature - - Respiratory Rate - - Oxygen Saturation - - Inhaled Oxygen Concentration - - Weight 88.5 kg (195 lb) 11/20/2022 9:13 AM FLEXIBLE SHAFT WINDER Height 162.6 cm (5' 4 ) 11/20/2022 9:13 AM FLEXIBLE SHAFT WINDER Body Mass Index 33.47 11/20/2022 9:13 AM FLEXIBLE SHAFT WINDER Plan of Treatment Health Maintenance Due Date Last Done Comments Breast Cancer Screening-Mammogram 1975 Cervical Cancer Screening 1975 Colon Cancer Screening-Colonoscopy 1975 Depression Screening 1975 Hepatitis C Screening 1975 Hepatitis B Screening 1993 Regular Well Visit/Exam 18-64 1993 Pneumococcal vaccine <65 (1 of 2 - PCV) 1994 DTaP/Tdap/Td Vaccine (2 - Tdap) 12/11/2008 9 Covid-19 Vaccine ( - season) 2024, 04/29/2021 Influenza Vaccine (#1) 2024 Insurance Care Teams Siding Coreboard Inspector Relationship Specialty Start Date End Date John Mccabe MD PCP - General Family Medicine 03/07/22
--- NOTE | 2025-02-22 20:55 | ECG_ITS ---
Test Date: 2025-02-22 21:08:25 Measurements Intervals [place] Rate: 66 P: 66 AR: 142 QRS: 64 QRSD: 79 T: 79 QT: 425 QTc: 446 Interpretive Statements SINUS RHYTHM WITH OCCASIONAL VENTRICULAR PREMATURE COMPLEXES POSSIBLE LEFT ATRIAL ENLARGEMENT BORDERLINE ECG No previous ECG available for comparison Electronically Signed On 02-23-2025 06:34:58 CDT by Armando Schofield D.O.
[2025-02-22 21:17] VITALS: O2SAT 97
[2025-02-22 21:21] LABS: Basophils Absolute Auto 0.1 K/mm3 (0.0-0.1); Basophils Percent Auto 0.6 % (0.2-1.2); Eosinophils Absolute Auto 0.3 K/mm3 (0-0.3); Eosinophils Percent Auto 3.4 % (0-4.4); Hematocrit 38.8 % (37.0-47.0); Hemoglobin 11.7 g/dL (12.0-15.0); Immature Granulocyte Absolute 0.03 K/mm3 (0.00-0.031); Immature Granulocyte Percent A 0.4 % (0-0.5); Immature Platelet Fraction Pct 10.8 % (0.9-11.2); Lymphocytes Absolute Auto 2.98 K/mm3 (0.9-3.2); Lymphocytes Percent Auto 36.4 % (18.3-44.2); Mean Corpuscular HGB Conc 30.2 g/dl (32-36); Mean Corpuscular Hemoglobin 20.5 pg (26-34); Mean Corpuscular Volume 68.1 fl (80-100); Mean Platelet Volume 11.8 fl (7.4-10.4); Monocytes Absolute Auto 0.5 K/mm3 (0.1-0.6); Monocytes Percent Auto 5.9 % (2.6-8.5); Neutrophils Absolute Auto 4.4 K/mm3 (1.3-6.7); Neutrophils Percent Auto 53.3 % (45.5-73.1); Platelet Count Result 193 k/mm3 (150-375); Red Cell Distribution Width 16.2 % (11.5-14.5); White Blood Count 8.2 K/mm3 (4.5-10.0)
[2025-02-22 21:29] LABS: Alanine Aminotransferase 31 U/L (6-35); Albumin Level 4.3 g/dL (3.5-5.1); Alkaline Phosphatase 89 U/L (38-126); Anion Gap 7 mmol/L (4-12); Aspartate Amino Transferase 31 U/L (14-36); Bilirubin,Total 0.7 mg/dL (0.2-1.3); Blood Urea Nitrogen 12 mg/dL (7-17); Calcium 8.6 mg/dL (8.4-10.2); Carbon Dioxide 27 mmol/L (22-30); Chloride 105 mmol/L (98-107); Estimated CRCL calculation 72 ml/min; Estimated Glomerular Filt Rate > 60; Glucose 110 mg/dL (65-110); Sodium 139 mmol/L (137-145)
[2025-02-22 21:31] LABS: Microcytosis 1+ (NORMAL); Ovalocytes 1+; Platelet Estimate Adequate (Adequate); Schistocytes None Seen
--- OUTSIDE RECORDS SUMMARY | 2025-02-22 21:46 | XMS_ITS | Clinical Summary ---
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 Mixed hyperlipidemia 04/03/2022 Assessment & Plan (11/21/2022 11:48 AM SUPERVISOR TUBING): Stable continue Lipitor 20 mg Assessment & [...] 88.5 kg (195 lb) 11/20/2022 9:13 AM SUPERVISOR TUBING Height 162.6 cm (5' 4 ) 11/20/2022 9:13 AM SUPERVISOR TUBING Body Mass Index 33.47 11/20/2022 9:13 AM SUPERVISOR TUBING Plan of Treatment Health Maintenance Due Date [...] 2024, 04/29/2021 Influenza Vaccine (#1) 2024 Insurance [facility] HMO/PPO Address: [facility] [id number] [place] [address] Care Teams Director Of Psychology Relationship Specialty Start Date End Date John Mccabe MD PCP - General Family Medicine 03/07/22
--- OUTSIDE RECORDS SUMMARY | 2025-02-22 21:46 | XMS_ITS | Referral Summary ---
Author Organization 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 Mixed hyperlipidemia 04/03/2022 Assessment & Plan (11/21/2022 11:48 AM FISH AND WILDLIFE TECHNICIAN): Stable continue Lipitor 20 mg Assessment & [...] 88.5 kg (195 lb) 11/20/2022 9:13 AM FISH AND WILDLIFE TECHNICIAN Height 162.6 cm (5' 4 ) 11/20/2022 9:13 AM FISH AND WILDLIFE TECHNICIAN Body Mass Index 33.47 11/20/2022 9:13 AM FISH AND WILDLIFE TECHNICIAN Plan of Treatment Not on file Insurance [facility] CHOICE [facility]US [facility] HMO/PPO Address: [facility] [address] [place] [address] Care Teams Semiconductor Engineer Relationship Specialty Start Date End Date John cMcabe MD PCP - General Family Medicine 03/07/22
[2025-02-22] MEDS: methylPREDNISolone SOD SUCC 125 MG VIAL IV PUSH (21:49)
[2025-02-22 21:50] VITALS: PULSE 60; RESP 18
[2025-02-22] MEDS: IPRATROPIUM 0.5 MG/ALBUTEROL SULFATE 2.5 MG AMPUL.NEB 3 ML INHALATION (21:50)
[2025-02-22 22:06] VITALS: PULSE 61; RESP 16; O2SAT 97
[2025-02-22 22:19] LABS: Influenza A QL RT-PCR Negative (Negative); Influenza B QL RT-PCR Negative (Negative); RSV RNA, RT-PCR Negative (Negative); SARS-CoV-2 RNA PCR Negative (Negative)
[2025-02-22 23:25] VITALS: BP 149/99; PULSE 72; RESP 12; O2SAT 100
--- NOTE | 2025-02-22 23:26 | ED.GENADULT ---
HPI - General Adult General Chief complaint: Shortness of Breath/Dyspnea Stated complaint: sob, URI Time Seen by Provider: 02/22/25 21:21 History of Present Illness HPI narrative: patient 49-year-old female who presents emergency department with chief complaint of cough the last couple of weeks. The patient states that she has had symptoms are improved with pseudoephedrine reports that she has been coughing up mucus patient reports no fever reports no prior history of cardiac disease reports that she has history of asthma. Related Data Home Medications ?Medication ?Instructions ?Recorded ?Confirmed ?Last Taken ?Type albuterol sulfate 90 mcg/actuation 2 puff inhalation Q4-5H PRN 12/22/20 07/10/22 06/26/22 History aerosol inhaler Shortness Of Breath Or Wheezing meloxicam 7.5 mg tablet 7.5 mg PO DAILY 11/28/21 07/10/22 06/22/22 History atorvastatin 20 mg tablet 20 mg PO DAILY 06/24/22 07/10/22 06/25/22 History cranberry extract 250 mg tablet 500 mg PO DAILY 06/24/22 07/10/22 06/25/22 History ferrous sulfate 325 mg (65 mg 325 mg PO DAILY 06/24/22 07/10/22 06/25/22 History iron) tablet (Iron (ferrous sulfate)) multivitamin with minerals-folic 1 tablet PO DAILY 06/24/22 07/10/22 06/25/22 History acid 0.4 mg tablet oxybutynin chloride 5 mg 5 mg PO DAILY 06/24/22 07/10/22 06/22/22 History tablet,extended release 24 hr Allergies Allergy/AdvReac Type Severity Reaction Status Date / Time No Known Allergies Allergy Verified 09/05/22 15:26 Review of Systems Review of Systems: A 10 system review of systems was completed on the patient and is negative except for what is stated in the HPI. Nursing and ancillary documentation was reviewed. PMFSH Past Medical History Medical History Asthma Low grade squamous intraepithelial lesion (LGSIL) Anemia Arthritis Hyperlipidemia Hypertension Surgical History Surgical History H/O LEEP (06/27/22) HGSIL History of laparotomy ectopic Family History Family History Mother Diabetes mellitus Cerebrovascular accident Father Throat cancer Grandparent Bone cancer paternal grandfather Other CHF (congestive heart failure) Social History Social History Smoking packs per day: 1 Smoking cigarettes per day: 20.0 Years smoked: 35 Smoking pack-years: 35.00 Smoking status: Current every day smoker Tobacco type: cigarettes Alcohol intake: former Substance use: never Substance use type: does not use Living arrangements: alone Occupation/Education: occupation 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 HEAD: Normocephalic, atraumatic. EYES: PERRLA and EOMI. ENT: Nares clear, no rhinorrhea or epistaxis. Mucous membranes moist. NECK: Supple. CHEST: Scattered wheezes to auscultation. No respiratory distress. HEART: Regular rate and rhythm. No murmur heard. Normal peripheral pulses. ABDOMEN: Soft, nontender, nondistended, normal active bowel sounds. EXTREMITIES: Normal range of motion. No edema. SKIN: Warm, dry, no rash. NEURO: No focal deficits. Alert and oriented x3. PSYCH: Normal mood and affect. Course Vital Signs Vital signs: Vital Signs Temperature 36.5 C 02/22/25 20:52 Pulse Rate 66 02/22/25 20:52 Respiratory Rate 19 02/22/25 20:52 Blood Pressure 184/91 H 02/22/25 20:52 Pulse Oximetry 96 02/22/25 20:52 Oxygen Delivery Room Air 02/22/25 20:52 Temperature 36.5 C 02/22/25 20:52 Pulse Rate 61 02/22/25 22:06 Respiratory Rate 16 02/22/25 22:06 Blood Pressure 184/91 H 02/22/25 20:52 Pulse Oximetry 97 02/22/25 22:06 Oxygen Delivery Room Air 02/22/25 22:06 Medical Decision Making MDM Narrative Medical decision making narrative: differential diagnosis pneumonia, asthma, COVID, flu, RSV chest x-ray showed no focal infiltrate COVID flu RSV were negative patient received IV steroids received a DuoNeb and is feeling much better patient was started on oral steroids Vital Signs Vital Signs: Vital Signs Temperature 36.5 C 02/22/25 20:52 Pulse Rate 66 02/22/25 20:52 Respiratory Rate 19 02/22/25 20:52 Blood Pressure 184/91 H 02/22/25 20:52 Pulse Oximetry 96 02/22/25 20:52 Oxygen Delivery Room Air 02/22/25 20:52 Temperature 36.5 C 02/22/25 20:52 Pulse Rate 61 02/22/25 22:06 Respiratory Rate 16 02/22/25 22:06 Blood Pressure 184/91 H 02/22/25 20:52 Pulse Oximetry 97 02/22/25 22:06 Oxygen Delivery Room Air 02/22/25 22:06 Lab Data 02/22/25 21:14 02/22/25 21:14 Labs: Lab Results 02/22/25 02/22/25 Range/Units 21:14 21:39 WBC 8.2 (4.5-10.0) K/mm3 RBC 5.70 H (4.2-5.4) M/mm3 Hgb 11.7 L (12.0-15.0) g/dL Hct 38.8 (37.0-47.0) % MCV 68.1 L (80-100) fl MCH 20.5 L (26-34) pg MCHC 30.2 L (32-36) g/dl RDW 16.2 H (11.5-14.5) % Plt Count 193 (150-375) k/mm3 MPV 11.8 H (7.4-10.4) fl Immature Gran % (Auto) 0.4 (0-0.5) % Neut % (Auto) 53.3 (45.5-73.1) % Lymph % (Auto) 36.4 (18.3-44.2) % [place] % (Auto) 5.9 (2.6-8.5) % Eos % (Auto) 3.4 (0-4.4) % Baso % (Auto) 0.6 (0.2-1.2) % Lymph # (Auto) 2.98 (0.9-3.2) K/mm3 [place] # (Auto) 0.5 (0.1-0.6) K/mm3 Eos # (Auto) 0.3 (0-0.3) K/mm3 Baso # (Auto) 0.1 (0.0-0.1) K/mm3 Abs Immat Gran (auto) 0.03 (0.00-0.031) K/mm3 Absolute Neuts (auto) 4.4 (1.3-6.7) K/mm3 Absolute Nucleated RBC 0.000 (0.0-0.012) K/mm3 Band Neutrophils % Not Reportable Nucleated RBC % 0.0 (0.0-0.2) % Platelet Estimate Adequate (Adequate) % Immature Plt Fraction 10.8 (0.9-11.2) % Microcytosis 1+ (NORMAL) Ovalocytes 1+ Schistocytes None seen Sodium 139 (137-145) mmol/L Potassium 4.0 (3.4-5.0) mmol/L Chloride 105 (98-107) mmol/L Carbon Dioxide 27 (22-30) mmol/L Anion Gap 7 (4-12) mmol/L BUN 12 D (7-17) mg/dL Creatinine 0.97 (0.7-1.0) mg/dL Estim Creat Clear Calc 72 ml/min Estimated GFR > 60 (59 - ) Glucose 110 (65-110) mg/dL Calcium 8.6 (8.4-10.2) mg/dL Total Bilirubin 0.7 (0.2-1.3) mg/dL AST 31 (14-36) U/L ALT 31 (6-35) U/L Alkaline Phosphatase 89 (38-126) U/L Total Protein 8.0 (6.3-8.2) g/dL Albumin 4.3 (3.5-5.1) g/dL Influenza A (RT-PCR) Negative (Negative) Influenza B (RT-PCR) Negative (Negative) RSV (RT-PCR) Negative (Negative) SARS-CoV-2 RNA (RT-PCR) Negative (Negative) Discharge Plan Discharge Clinical Impression: Acute upper respiratory infection Patient Disposition: Home Condition: Stable Instructions: Antibiotic Form, Upper Respiratory Infection (ED) Patient Language: Zambian Prescriptions: New prednisone 20 mg tablet 40 mg PO DAILY 5 Days Qty: 10 0RF benzonatate 200 mg capsule 200 mg PO TID PRN (Reason: cough) Qty: 21 0RF No Action albuterol sulfate 90 mcg/actuation HFA aerosol inhaler 2 puff INHALATION Q4-5H PRN (Reason: Shortness Of Breath Or Wheezing) Patient Comments: pt hasnt taken in awhile meloxicam 7.5 mg tablet 7.5 mg PO DAILY Patient Comments: pt hasnt taken in awhile atorvastatin 20 mg tablet 20 mg PO DAILY ferrous sulfate [Iron (ferrous sulfate)] 325 mg (65 mg iron) Tablet 325 mg PO DAILY oxybutynin chloride 5 mg tablet extended release 24hr 5 mg PO DAILY cranberry extract 250 mg Tablet 500 mg PO DAILY multivit with min-folic acid 0.4 mg Tablet 1 tablet PO DAILY ibuprofen 800 mg tablet 800 mg PO TID PRN (Reason: pain) Qty: 20 0RF furosemide 20 mg tablet 20 mg PO DAILY Qty: 5 0RF oxybutynin chloride 5 mg tablet extended release 24hr 5 mg PO DAILY Qty: 90 0RF Rx Instructions: need to call office and schedule annual exam for any further refills Follow-up/Referrals: UNKNOWN,DOCTOR [Primary Care Provider] - Time of Disposition: 23:29
--- NOTE | 2025-02-22 23:43 | PC.NURSE ---
sumed care of patient after receiving bedside report from ROMI Coburn @ [phone].
== END 2025-02-22 23:30 | disposition home or self-care (01) ==
PROVIDERS: Emergency Provider Emergency Medicine
DX: J06.9 Acute upper respiratory infection, unspecified (principal); Z20.822 Contact with and (suspected) exposure to COVID-19; F17.210 Nicotine dependence, cigarettes, uncomplicated; J45.909 Unspecified asthma, uncomplicated; D64.9 Anemia, unspecified; M19.90 Unspecified osteoarthritis, unspecified site; E78.5 Hyperlipidemia, unspecified; I10 Essential (primary) hypertension
CPT/HCPCS: 36415; 71046; 80053; 85025; 85055; 87637; 93005; 94640; 96374; 99284; J2919